=== PATIENT | female | born 1970 ===

== ENCOUNTER 2022-02-01 08:24 | Outpatient (REF) | payer OTHER, SELFPAY ==
[2022-02-01 08:43] LABS: MANUAL DIFF FLAG NO
[2022-02-01 08:55] LABS: Basophils Percent Auto 0.6 % (0-2); Eosinophils Absolute Auto 0.4 X10*3/uL (0.0-0.4); Eosinophils Percent Auto 7.6 % (0-4); Hematocrit 43.6 % (37.0-47.0); Imm Gran Abs Auto 0.01 X10*3/uL (0.00-0.03); Imm Gran Pct Auto 0.2 % (0.0-0.4); Lymphocytes Absolute Auto 1.4 X10*3/uL (1.2-4.9); Lymphocytes Percent Auto 27.8 % (20-40); Mean Corpuscular HGB Conc 34.4 g/dl (31.0-35.0); Mean Corpuscular Hemoglobin 31.1 pg (27.0-33.0); Mean Corpuscular Volume 90.5 fL (80.0-98.0); Mean Platelet Volume 9.9 fL (9.4-12.3); Monocytes Absolute Auto 0.3 X10*3/uL (0.1-1.2); Monocytes Percent Auto 6.6 % (2-11); Neutrophils Absolute Auto 2.9 x10*3/uL (2.0-8.3); Neutrophils Percent Auto 57.2 % (45-73); Platelet Count 264 X10*3/uL (160-400); Red Blood Count 4.82 X10*6/uL (4.20-5.50); Red Cell Distribution Width 11.8 % (11.0-16.0)
[2022-02-01 09:03] LABS: Estimated Average Glucose 94 mg/dL; Hemoglobin A1c % 4.9 %
[2022-02-01 09:16] LABS: Alanine Aminotransferase 39 U/L (0-31); Albumin Level 4.3 g/dL (3.5-5.0); Alkaline Phosphatase 100 U/L (39-117); Aspartate Amino Transferase 25 U/L (5-31); Bilirubin Total 0.7 mg/dL (0.0-1.0); Blood Urea Nitrogen 19 mg/dL (9-16); C Reactive Protein 0.14 mg/dL (< or = 0.50); Calcium 10.1 mg/dL (8.4-10.2); Estimated Glomerular Filt Rate > 60; Glucose Random 82 mg/dL (60-115); Rheumatoid Factor < 13.0 IU/mL (<15.0); Total Protein 6.8 g/dL (6.5-8.0)
[2022-02-01 09:26] LABS: Anion Gap 13 (12-20); Carbon Dioxide 26 mmol/L (22-29); Chloride 106 mmol/L (96-108); Potassium 3.9 mmol/L (3.3-5.1); Sodium 141 mmol/L (135-145)
[2022-02-01 09:36] LABS: Erythrocyte Sedimentation Rate 5 MM/HR (0-20)
[2022-02-01 11:39] LABS: Appearance Urine Clear; Color Urine Yellow; Glucose Urine UA Negative (Negative); Leukocyte Esterase Urine Small (1+) (Negative); Nitrite Urine Negative (Negative); PH 6.5 (5.0-9.0); UMIC TRIGGER UA YES; Urine Blood Negative (Negative); Urine Ketones Negative (Negative); Urine Protein Negative (Neg-Trace)
[2022-02-01 11:56] LABS: Bacteria Urine None Seen (None Seen); Calcium Oxalate Crystals Urine Present; Hyaline Casts Urine 0-2 /LPF (0-2); RBC Urine 0-2 /HPF (0-2); Squamous Epithelial Cell Urine 0-2 /HPF (0-2); WBC Urine 0-5 /HPF (0-5)
[2022-02-01 12:11] LABS: Creatinine Urine 144.95 mg/dL; Total Protein Urine Random < 7 mg/dL (<12)
[2022-02-03 14:22] LABS: Prot Elec - Albumin 4.2 g/dL (3.8-4.8); Prot Elec - Alpha1 0.2 g/dL (0.2-0.3); Prot Elec - Alpha2 0.6 g/dL (0.5-0.9); Prot Elec - Beta 1 0.4 g/dL (0.4-0.6); Prot Elec - Beta 2 0.3 g/dL (0.2-0.5); Prot Elec - Total Protein 6.7 g/dL (6.1-8.1)
[2022-02-04 01:58] LABS: Complement C3 139 mg/dL (83-193)
[2022-02-05 14:49] LABS: Cyclic Citrullinated Peptide <16 UNITS
[2022-02-05 18:54] LABS: Anti DNA DS Antibody 1 IU/mL; Antibody to SS-A Antigen <1.0 NEG AI (<1.0 NEG); Antibody to SS-B Antigen <1.0 NEG AI (<1.0 NEG); SM/Ribonucleoprotein Ab <1.0 NEG AI (<1.0 NEG); Smith Protein <1.0 NEG AI (<1.0 NEG)
[2022-02-07 13:52] LABS: IgA 189 mg/dL (47-310); IgG 1160 mg/dL (600-1640); IgM 55 mg/dL (50-300)
[2022-02-10 15:20] LABS: Cryoglobulin, Qual NONE DETECTED ((NDT))
== END 2022-02-01 08:25 | disposition home or self-care (01) ==
LOC: HO.10HDL 08:24
PROVIDERS: Visit Provider Student in an Organized Health Care Education/Training Program
DX: Z13.1 Encounter for screening for diabetes mellitus (principal); M35.01 Sjogren syndrome with keratoconjunctivitis; R76.8 Other specified abnormal immunological findings in serum; J45.909 Unspecified asthma, uncomplicated
CPT/HCPCS: 36415; 80053; 81001; 82550; 82595; 82784; 83036; 84156; 84165; 85025; 85652; 86140; 86160; 86200; 86225; 86235; 86334; 86431; 99202

== ENCOUNTER 2022-03-30 13:15 | Outpatient (REF) | payer OTHER, SELFPAY ==
[2022-03-30 13:57] LABS: MANUAL DIFF FLAG NO
[2022-03-30 14:21] LABS: Basophils Absolute Auto 0.1 X10*3/uL (0.0-0.2); Basophils Percent Auto 0.7 % (0-2); Eosinophils Absolute Auto 0.4 X10*3/uL (0.0-0.4); Hematocrit 44.9 % (37.0-47.0); Hemoglobin 15.4 g/dl (12.0-16.0); Imm Gran Abs Auto 0.02 X10*3/uL (0.00-0.03); Imm Gran Pct Auto 0.2 % (0.0-0.4); Lymphocytes Absolute Auto 1.3 X10*3/uL (1.2-4.9); Lymphocytes Percent Auto 13.8 % (20-40); Mean Corpuscular HGB Conc 34.3 g/dl (31.0-35.0); Mean Corpuscular Hemoglobin 30.7 pg (27.0-33.0); Mean Corpuscular Volume 89.6 fL (80.0-98.0); Mean Platelet Volume 9.7 fL (9.4-12.3); Monocytes Absolute Auto 0.4 X10*3/uL (0.1-1.2); Monocytes Percent Auto 4.1 % (2-11); Neutrophils Absolute Auto 7.1 x10*3/uL (2.0-8.3); Neutrophils Percent Auto 77.2 % (45-73); Platelet Count 262 X10*3/uL (160-400); Red Blood Count 5.01 X10*6/uL (4.20-5.50); Red Cell Distribution Width 11.8 % (11.0-16.0); White Blood Count 9.2 X10*3/uL (4.8-10.8)
== END 2022-03-30 13:16 | disposition home or self-care (01) ==
LOC: HO.LAB 13:15
PROVIDERS: PCP Student in an Organized Health Care Education/Training Program; Visit Provider Internal Medicine Pulmonary Disease
DX: J45.909 Unspecified asthma, uncomplicated (principal); Z91.09 Other allergy status, other than to drugs and biological substances
CPT/HCPCS: 36415; 82785; 85025; 86003; 99202

== ENCOUNTER 2022-04-10 08:29 | Outpatient (REF) | payer OTHER, SELFPAY ==
--- NOTE | 2022-04-10 12:01 | PFT_ITS ---
Forced vital capacity 90%, FEV1 91%. FEV1/FVC ratio is 81. LSO95-12 is 83% and MVV 91%. Post bronchodilator therapy, there is no significant change. Total lung capacity 91%. Residual volume 91%. Diffusion capacity 128%. CONCLUSION: Normal pulmonary function test. No evidence of obstructive or restrictive pulmonary disorder. MD CHRISTIAN Galeana/JERMAINE / [id number]
== END 2022-04-10 08:30 | disposition home or self-care (01) ==
LOC: HO.RESP 08:29
PROVIDERS: Visit Provider Internal Medicine Pulmonary Disease
DX: J45.909 Unspecified asthma, uncomplicated (principal)
CPT/HCPCS: 94060; 94727; 94729

== ENCOUNTER → 2022-05-11 13:00 | Outpatient (BNVA) | payer OTHER, SELFPAY | PROVIDERS: PCP Student in an Organized Health Care Education/Training Program; Visit Provider Internal Medicine Pulmonary Disease | DX: J45.909 Unspecified asthma, uncomplicated (principal); Z91.09 Other allergy status, other than to drugs and biological substances | CPT/HCPCS: 99212 ==

== ENCOUNTER → 2022-05-25 09:05 | Outpatient (BNVA) | payer OTHER, SELFPAY | PROVIDERS: PCP Student in an Organized Health Care Education/Training Program; Visit Provider Student in an Organized Health Care Education/Training Program | DX: R76.8 Other specified abnormal immunological findings in serum (principal) | CPT/HCPCS: 99212 ==

== ENCOUNTER → 2022-07-05 09:08 | Outpatient (BNVA) | payer OTHER, SELFPAY | PROVIDERS: PCP Student in an Organized Health Care Education/Training Program; Visit Provider Internal Medicine Pulmonary Disease | DX: J45.909 Unspecified asthma, uncomplicated (principal); Z91.09 Other allergy status, other than to drugs and biological substances; Z79.899 Other long term (current) drug therapy; Z87.891 Personal history of nicotine dependence | CPT/HCPCS: 99212 ==

== ENCOUNTER 2022-09-21 07:39 | Outpatient (AMB) | payer OTHER, SELFPAY ==
--- NOTE | 2022-09-21 07:43 | MHC.OFFVIS ---
Intake Vital Signs 09/21/22 07:44 Height 5 ft 4 in Weight 139 lb 15.896 oz BMI 24.0 Blood Pressure Location Rt brachial Position Sitting Pulse 76 Pulse Source Palpation Temp 97.7 F Temp Source Temporal Artery Scan Pulse Oximetry (%) 96 Oxygen Delivery Method Room Air Intake Visit Reasons: [place] Allergies No Known Allergies Allergy (Verified 07/05/22 09:16) Medication List - Last Reconciled 09/21/22 by Milli Witt MD acetaminophen (Tylenol Extra Strength) 1,000 mg PO Q6H PRN alendronate 70 mg PO QWEEK fluticasone furoate-vilanterol 200-25 mcg/dose (Breo Ellipta) 1 inh inhalation DAILY 30 days fluticasone propionate 50 mcg/actuation (Allergy Relief (fluticasone)) 1 spray intranasal DAILY hydrochlorothiazide 25 mg PO DAILY levothyroxine 100 mcg PO DAILY losartan 25 mg PO DAILY meclizine 12.5 mg PO TID PRN minoxidil 1.25 mg PO DAILY montelukast 10 mg PO DAILY salt irrigation solution no.1 ([place] Complete nasal spray) sprays intranasal DAILY spironolactone (Aldactone) 50 mg PO DAILY Ventolin HFA 90 mcg/actuation (albuterol sulfate) 1 puff PO Q4-6H PRN 30 days NS HPI HPI Comments History of Present Illness Details This is a 51-year-old female with a past medical history of suspected Sjogren's returns for follow-up. Patient was evaluated by ENT and lip biopsy was discussed but patient decided not to do it. She was evaluated recently by Ophthalmology and had bilateral punctal plugs with improvement in her dry mouth. Patient states that she gets episodes of skin pain, she also gets episodes of pain and swelling in her fingers and knuckles. She recently stopped gabapentin as she felt it was giving her headaches Initial history: This is a 51-year-old female with past medical history of thyroid disease s/p radioiodine ablation, childhood asthma presents for evaluation of Sjogren's. Patient was diagnosed with Sjogren's syndrome 4-5 years ago with a positive DEANA, dry eyes and dry mouth and diffuse pain. She was started on hydroxychloroquine and took it for about 3 years. She stated that hydroxychloroquine initially provided some relief but he was stopped by her PCP about a year ago. Patient states that her symptoms did not change after stopping the Plaquenil. She was also tried briefly 2019 on methotrexate for joint pain but it was ineffective. Patient was evaluated by Ophthalmology before but she denied ever getting any artificial tears. Patient stated that she was diagnosed with COVID about 4-5 weeks ago and she still has some shortness of breath. She states that she had asthma as a child and used to take syrup for it, denied ever needing inhalers. She was admitted for asthma as a child multiple times but denied ever getting intubated. She denies any fevers or weight loss. She continues to have diffuse pain [facility] Medical History Hypertension Hypothyroidism Inflammatory arthritis Sjogren syndrome with keratoconjunctivitis Surgical History H/O radioactive iodine thyroid ablation Hx of eye surgery Family History Father Hypertension Kidney stones Brother Chronic headaches Social History Household Members: Family Housing: Apartment Are you a primary toddler caregiver to a significant other at home: No Do you presently have visiting nurse or other home services: No 75 years or older and lives alone: No Alcohol intake: never Patient Tobacco Use Status: Never used Tobacco e-Cigarette/Vaping Use: Never Used service: No Current occupational status: employed 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 Review of Systems Const Reports fatigue ENT Reports dry mouth Musc Reports myalgias, Reports arthralgias and Reports stiffness Endo Reports fatigue Physical Exam Const General: cooperative, healthy appearing, comfortable and no acute distress Nutritional Appearance: average body habitus Orientation/consciousness: patient oriented x3 Limitations: no limitations HEENT Head: Yes normocephalic and Yes atraumatic Mouth: moist mucous membranes Resp Effort & Inspection: normal respiratory effort and able to speak in complete sentences Cardio Rate: regular rate Rhythm: regular rhythm Heart sounds: S1 normal heart sound present and S2 normal heart sound present GI Inspection: No distended Palpation (GI): Soft to palpation and nontender Neuro General: patient oriented x3 Extrem Other: Normal nailfold capillaroscopy Right 3rd MCP tenderness without swelling Results Reviewed Results Reviewed: Labs 2018 DEANA 1-640 speckled Labs 2017 DEANA 1:1280 homogeneous Assessment & Plan Assessment & Plan (1) DEANA positive: Code(s): R76.8 - Other specified abnormal immunological findings in serum Plan: This is a 51-year-old female previously diagnosed with Sjogren's presents for follow-up. She was diagnosed with Sjogren's based on positive DEANA, diffuse pain (? Inflammatory arthritis) and dry eyes and dry mouth. Patient also has a positive thyroperoxidase antibody. She has negative Sjogren's antibodies. She was on hydroxychloroquine for 3 years which was stopped with no worsening of joint pain. Methotrexate was briefly tried in 2019 which was ineffective. Patient was evaluated by ENT for lip biopsy but patient was afraid to do the procedure. I discussed with patient the importance of confirming the diagnosis of Sjogren's as it has implications with regards to screening for complications of Sjogren's such as lymphomas, ILD and pulmonary hypertension and others. Patient will think about the lip biopsy Patient stated that she was doing better when she was on hydroxychloroquine. Will restart hydroxychloroquine 300 mg daily. The majority of patients complaints however are likely due to fibromyalgia Follow-up in 4 months (2) Long-term use of hydroxychloroquine: Code(s): Z79.899 - Other prison (current) drug therapy Plan: Side effects of Plaquenil were discussed with patient is including but not limited to allergic reaction, retinal toxicity, cardiomyopathy, myopathy. Patient counseled that he will get regular eye exam. Patient verbalized understanding Plan I spent 29 minutes reviewing patient's chart, evaluating patient, placing orders, counseling patient and documenting in the chart Medications: New hydroxychloroquine 300 mg (1.5 x 200 mg) PO DAILY 135 tabs 1RF Coding Level of Care Code Est Pt Level 4 (77854) Diagnoses DEANA positive R76.8 Long-term use of hydroxychloroquine Z79.899
[2022-09-21 07:44] VITALS: PULSE 76; TEMP 36.5; O2SAT 96; BMI 24.0
== END 2022-09-21 08:05 | disposition home or self-care (01) ==
PROVIDERS: PCP Student in an Organized Health Care Education/Training Program; Visit Provider Student in an Organized Health Care Education/Training Program
DX: R76.8 Other specified abnormal immunological findings in serum (principal); Z79.899 Other long term (current) drug therapy
CPT/HCPCS: 99214

== ENCOUNTER → 2022-09-21 07:39 | Outpatient (BNVA) | payer OTHER, SELFPAY | PROVIDERS: Visit Provider Student in an Organized Health Care Education/Training Program | DX: R76.8 Other specified abnormal immunological findings in serum (principal); Z79.899 Other long term (current) drug therapy | CPT/HCPCS: 99212 ==

== ENCOUNTER 2022-11-14 08:36 | Outpatient (AMB) | payer OTHER, SELFPAY ==
[2022-11-14 08:49] VITALS: BP 122/79; PULSE 81; O2SAT 99; BMI 28.4
--- NOTE | 2022-11-14 08:49 | MHC.OFFVIS ---
Intake Vital Signs 11/14/22 08:49 Height 5 ft Weight 145 lb 8.081 oz BMI 28.4 BP 122/79 Blood Pressure Location Lt brachial Position Sitting Pulse 81 Pulse Source Doppler Pulse Oximetry (%) 99 Oxygen Delivery Method Room Air Intake Visit Reasons: asthma Allergies No Known Allergies Allergy (Verified 11/14/22 08:54) HPI asthma HPI Details 51-year-old lady, former 5 pack year smoker, quit over 15 years prior with underlying history of Sjogren syndrome, followed for moderate persistent asthma and environmental allergies. At the last office visit Singulair was added to her regimen of Breo and albuterol MDI with improvement in symptom control. Patient denies any recent exacerbations. [facility] Medical History Hypertension Hypothyroidism Inflammatory arthritis Sjogren syndrome with keratoconjunctivitis Surgical History H/O radioactive iodine thyroid ablation Hx of eye surgery Family History Father Hypertension Kidney stones Brother Chronic headaches Social History Household Members: Family Housing: Apartment Are you a primary healthcare prof to a significant other at home: No Do you presently have visiting nurse or other home services: No 75 years or older and lives alone: No Alcohol intake: never Patient Tobacco Use Status: Never used Tobacco e-Cigarette/Vaping Use: Never Used service: No Current occupational status: employed 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 Review of Systems Const Denies daytime sleepiness, Denies excessive sweating, Denies fatigue, Denies fever(s), Denies lethargy, Denies malaise, Denies night sweats, Denies snoring and Denies weight loss Eyes Denies blurry vision and Denies itchy eyes ENT Denies nasal congestion, Denies post nasal drip, Denies sinus pain, Denies sinus pressure and Denies other ( Thrush) Card Denies chest pain, Denies pedal edema, Denies dyspnea, Denies orthopnea and Denies paroxysmal nocturnal dyspnea Resp Denies cough, Denies hemoptysis, Denies excessive phlegm production, Denies dyspnea, Denies snoring and Denies wheezing GI Denies abdominal pain and Denies heartburn Musc Denies myalgias, Denies arthralgias and Denies joint swelling Skin/Breast Denies rash Neuro Denies memory loss and Denies seizure-like activity Psych Denies abnormal sleep pattern, Denies anxiety and Denies memory loss Endo Denies excessive sweating, Denies fatigue and Denies heat intolerance Cory/Lymph Denies easy bruising Aller/Immun Denies itchy eyes, Denies seasonal rhinorrhea and Denies wheezing Physical Exam Vital Signs: Last Vital Signs Pulse 81 11/14/22 08:49 BP 122/79 11/14/22 08:49 Pulse Ox 99 11/14/22 08:49 Oxygen Delivery Method Room Air 11/14/22 08:49 BMI result Body Mass Index 28.4 Const General: no acute distress and alert Nutritional Appearance: not obese Orientation/consciousness: Other orientation findings ( oriented) HEENT Head: Yes atraumatic Eyes General: appearance normal, both eyes and all related structures Sclerae: sclerae normal EOM: EOMs intact bilaterally Neck Neck: Yes supple Lymphatic: no lymphadenopathy noted Resp Effort & Inspection: normal respiratory effort and no use of accessory muscles Auscultation: clear to auscultation bilaterally Cardio Rate: regular rate Rhythm: regular rhythm Heart sounds: no gallops, no murmurs and no rubs Skin General skin exam: other ( warm) Extrem General: No clubbing, No cyanosis and No edema Assessment & Plan Assessment & Plan (1) Asthma: Code(s): J45.909 - Unspecified asthma, uncomplicated Qualifiers: Asthma severity: mild Asthma persistence: unspecified Plan: Well controlled on Breo and albuterol MDI. Continue current regimen. (2) Environmental allergies: Code(s): Z91.09 - Other allergy status, other than to drugs and biological substances Plan: Well controlled on Singulair and Flonase. Continue current regimen. Coding Level of Care Code Est Pt Level 4 (58625) Diagnoses Asthma J45.909 Asthma severity: mild Asthma persistence: unspecified Environmental allergies Z91.09
== END 2022-11-14 09:18 | disposition home or self-care (01) ==
PROVIDERS: PCP Student in an Organized Health Care Education/Training Program; Visit Provider Internal Medicine Pulmonary Disease
DX: J45.909 Unspecified asthma, uncomplicated (principal); Z91.09 Other allergy status, other than to drugs and biological substances
CPT/HCPCS: 99214

== ENCOUNTER → 2022-11-14 08:36 | Outpatient (BNVA) | payer OTHER, SELFPAY | PROVIDERS: PCP Student in an Organized Health Care Education/Training Program; Visit Provider Internal Medicine Pulmonary Disease | DX: J45.909 Unspecified asthma, uncomplicated (principal); Z91.09 Other allergy status, other than to drugs and biological substances | CPT/HCPCS: 99212 ==

== ENCOUNTER 2023-02-05 13:33 | Outpatient (AMB) | payer OTHER, SELFPAY ==
[2023-02-05 13:34] VITALS: BP 164/98; PULSE 114; O2SAT 97; BMI 29.3
--- NOTE | 2023-02-05 13:34 | A.OFFVIS_ITS ---
Intake Vital Signs 02/05/23 13:34 Height 5 ft Weight 149 lb 14.629 oz BMI 29.3 BP 164/98 H Blood Pressure Location Lt brachial Position Sitting Pulse 114 H Pulse Source Doppler Pulse Oximetry (%) 97 Intake Visit Reasons: cough and wheeze Allergies No Known Allergies Allergy (Verified 02/05/23 13:38) HPI cough and wheeze HPI Details 52-year-old lady, former 5 pack year smo ker, quit over 15 years prior with underlying history of Sjogren syndrome, followed for moderate persistent asthma and environmental allergies. Patient continues on Breo, Singulair, and albuterol MDI with reasonable baseline control of his symptoms. Today she complains of an acute exacerbation with viral bronchitic symptoms. [facility] Medical History Hypertension Hypothyroidism Inflammatory arthritis Sjogren syndrome with keratoconjunctivitis Surgical History H/O radioactive iodine thyroid ablation Hx of eye surgery Family History Father Hypertension Kidney stones Brother Chronic headaches Social History Household Members: Family Housing: Apartment Are you a primary pet care assistant to a significant other at home: No Do you presently have visiting nurse or other home services: No 75 years or older and lives alone: No Alcohol intake: never Patient Tobacco Use Status: Never used Tobacco e-Cigarette/Vaping Use: Never Used service: No Current occupational status: employed 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 Review of Systems Const Denies daytime sleepiness, Denies excessive sweating, Denies fatigue, Denies fever(s), Denies lethargy, Denies malaise, Denies night sweats, Denies snoring and Denies weight loss Eyes Denies blurry vision and Denies itchy eyes ENT Denies nasal congestion, Denies post nasal drip, Denies sinus pain, Denies sinus pressure and Denies other ( Thrush) Card Denies chest pain, Denies pedal edema, Denies dyspnea, Reports dyspnea on exertion, Denies orthopnea and Denies paroxysmal nocturnal dyspnea Resp Reports cough, Denies hemoptysis, Denies excessive phlegm production, Denies dyspnea, Reports dyspnea on exertion, Denies snoring and Reports wheezing GI Denies abdominal pain and Denies heartburn Musc Denies myalgias, Denies arthralgias and Denies joint swelling Skin/Breast Denies rash Neuro Denies memory loss and Denies seizure-like activity Psych Denies abnormal sleep pattern, Denies anxiety and Denies memory loss Endo Denies excessive sweating, Denies fatigue and Denies heat intolerance Cory/Lymph Denies easy bruising Aller/Immun Denies itchy eyes, Denies seasonal rhinorrhea and Reports wheezing Physical Exam Vital Signs: Last Vital Signs Pulse 114 H 02/05/23 13:34 BP 164/98 H 02/05/23 13:34 Pulse Ox 97 02/05/23 13:34 BMI result Body Mass Index 29.3 Const General: no acute distress and alert Nutritional Appearance: not obese Orientation/consciousness: Other orientation findings ( oriented) HEENT Head: Yes atraumatic Eyes General: appearance normal, both eyes and all related structures Sclerae: sclerae normal EOM: EOMs intact bilaterally Neck Neck: Yes supple Lymphatic: no lymphadenopathy noted Resp Effort & Inspection: normal respiratory effort and no use of accessory muscles Auscultation: clear to auscultation bilaterally Cardio Rate: regular rate Rhythm: regular rhythm Heart sounds: no gallops, no murmurs and no rubs Skin General skin exam: other ( warm) Extrem General: No clubbing, No cyanosis and No edema Assessment & Plan Assessment & Plan (1) Asthma: Code(s): J45.909 - Unspecified asthma, uncomplicated Qualifiers: Asthma severity: mild Asthma persistence: unspecified Plan: Baseline controlled on Breo, albuterol MDI, and Singulair. Continue current regimen. (2) Acute bronchitis: Code(s): J20.9 - Acute bronchitis, unspecified Plan: Now with acute bronchitic symptoms. Will obtain RSV/COVID/flu swab. Will treat with a course of prednisone and azithromycin. Orders: Orders SARS-CoV2/FLU/RSV Today R09.89 - Other specified symptoms and signs involving the circulatory and respiratory systems Medications: New prednisone 40 mg (2 x 20 mg) PO DAILY 10 tabs 0RF azithromycin For 250 mg dose pack: take 500 mg today (day 1), then 250 mg for 4 days (days 2-5) PO 6 tabs 0RF Coding Level of Care Code Est Pt Level 4 (49590) Diagnoses Asthma J45.909 Asthma severity: mild Asthma persistence: unspecified Acute bronchitis J20.9
== END 2023-02-05 13:55 | disposition home or self-care (01) ==
PROVIDERS: PCP Student in an Organized Health Care Education/Training Program; Visit Provider Internal Medicine Pulmonary Disease
DX: J45.909 Unspecified asthma, uncomplicated (principal); J20.9 Acute bronchitis, unspecified
CPT/HCPCS: 99214

== ENCOUNTER 2023-02-05 13:33 | Outpatient (REF) | payer OTHER, SELFPAY ==
[2023-02-05 15:56] LABS: Influenza A PCR POSITIVE (Negative); Influenza B PCR NEGATIVE (Negative); Resp Syncy Virus RNA Qual PCR NEGATIVE (Negative); SARS COV2 PCR INHOUSE NEGATIVE (Negative)
== END 2023-02-05 13:34 | disposition home or self-care (01) ==
LOC: HO.LNP 13:33
PROVIDERS: PCP Student in an Organized Health Care Education/Training Program; Visit Provider Internal Medicine Pulmonary Disease
DX: Z11.52 Encounter for screening for COVID-19 (principal); R09.89 Other specified symptoms and signs involving the circulatory and respiratory systems; J45.909 Unspecified asthma, uncomplicated; J20.9 Acute bronchitis, unspecified
CPT/HCPCS: 0241U; 99212

== ENCOUNTER → 2023-04-08 07:57 | Outpatient (REF) | payer OTHER, SELFPAY | LOC: HO.SL 07:57 | PROVIDERS: PCP Student in an Organized Health Care Education/Training Program; Visit Provider Internal Medicine Pulmonary Disease | DX: G47.33 Obstructive sleep apnea (adult) (pediatric) (principal) | CPT/HCPCS: 95806 ==

== ENCOUNTER → 2023-04-08 08:36 | Outpatient (BNV) | payer OTHER, SELFPAY | PROVIDERS: PCP Student in an Organized Health Care Education/Training Program; Visit Provider Internal Medicine | DX: G47.33 Obstructive sleep apnea (adult) (pediatric) (principal) | CPT/HCPCS: 95806 ==

== ENCOUNTER 2023-05-13 08:40 | Outpatient (AMB) | payer OTHER, SELFPAY ==
--- NOTE | 2023-05-13 08:42 | MHC.OFFVIS ---
Intake Vital Signs 05/13/23 08:45 Height 5 ft Weight 145 lb 8.081 oz BMI 28.4 BP 124/80 Blood Pressure Location Lt brachial Position Sitting Pulse 77 Pulse Source Pulse Oximeter Temp 97.0 F Temp Source Skin Pulse Oximetry (%) 97 Oxygen Delivery Method Room Air Intake Visit Reasons: [facility] Intake Note: Patient last seen 09/21/22 presents today for follow up. 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 Accompanied by: Self / Same As Patient Allergies No Known Allergies Allergy (Verified 05/13/23 08:45) Medication List - Last Reconciled 05/13/23 by Milli Witt MD acetaminophen (Tylenol Extra Strength) 1,000 mg PO Q6H PRN alendronate 70 mg PO QWEEK fluticasone furoate-vilanterol 200-25 mcg/dose (Breo Ellipta) 1 inh inhalation DAILY 30 days fluticasone propionate 50 mcg/actuation (Allergy Relief (fluticasone)) 1 spray intranasal DAILY hydrochlorothiazide 25 mg PO DAILY levothyroxine 100 mcg PO DAILY losartan 25 mg PO DAILY meclizine 12.5 mg PO TID PRN minoxidil 1.25 mg PO DAILY montelukast 10 mg PO DAILY spironolactone (Aldactone) 50 mg PO DAILY Ventolin HFA 90 mcg/actuation (albuterol sulfate) 1 puff PO Q4-6H PRN 30 days NS HPI HPI Comments History of Present Illness Details This is a 52-year-old female with a past medical history of suspected Sjogren's returns for follow-up. She is on hydroxychloroquine 200 mg Twice daily. She states that she did not feel better when she was taking hydroxychloroquine. Continues to have diffuse pain. Especially of her shoulders, recently she went to urgent care due to generalized body numbness. She was advised to follow-up with her PCP. She recently completed a sleep study. She has not heard back about the results yet. Initial history: This is a 51-year-old female with past medical history of thyroid disease s/p radioiodine ablation, childhood asthma presents for evaluation of Sjogren's. Patient was diagnosed with Sjogren's syndrome 4-5 years ago with a positive DEANA, dry eyes and dry mouth and diffuse pain. She was started on hydroxychloroquine and took it for about 3 years. She stated that hydroxychloroquine initially provided some relief but he was stopped by her PCP about a year ago. Patient states that her symptoms did not change after stopping the Plaquenil. She was also tried briefly 2019 on methotrexate for joint pain but it was ineffective. Patient was evaluated by Ophthalmology before but she denied ever getting any artificial tears. Patient stated that she was diagnosed with COVID about 4-5 weeks ago and she still has some shortness of breath. She states that she had asthma as a child and used to take syrup for it, denied ever needing inhalers. She was admitted for asthma as a child multiple times but denied ever getting intubated. She denies any fevers or weight loss. She continues to have diffuse pain [facility] Medical History Hypothyroidism Sjogren syndrome with keratoconjunctivitis Inflammatory arthritis Hypertension Surgical History Hx of eye surgery H/O radioactive iodine thyroid ablation Family History Father Hypertension Kidney stones Brother Chronic headaches Social History Household Members: Family Housing: Apartment Are you a primary foster care worker to a significant other at home: No Do you presently have visiting nurse or other home services: No 75 years or older and lives alone: No Alcohol intake: never Patient Tobacco Use Status: Never used Tobacco e-Cigarette/Vaping Use: Never Used service: No Current occupational status: employed 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 Review of Systems Const Reports fatigue ENT Reports dry mouth Musc Reports myalgias, Reports arthralgias, Reports numbness and Reports stiffness Neuro Reports numbness Endo Reports fatigue Physical Exam Vital Signs: Last Vital Signs Temp 97.0 F 05/13/23 08:45 Pulse 77 05/13/23 08:45 BP 124/80 05/13/23 08:45 Pulse Ox 97 05/13/23 08:45 Oxygen Delivery Method Room Air 05/13/23 08:45 BMI result Body Mass Index 28.4 Const General: cooperative, healthy appearing, comfortable and no acute distress Nutritional Appearance: average body habitus Orientation/consciousness: patient oriented x3 Limitations: no limitations HEENT Other: Slightly dry oral mucosa Head: Yes normocephalic and Yes atraumatic Resp Effort & Inspection: normal respiratory effort and able to speak in complete sentences Cardio Rate: regular rate Rhythm: regular rhythm Neuro General: patient oriented x3 Extrem Other: No active synovitis Few fibromyalgia tender points Results Reviewed Results Reviewed: Labs 2018 DEANA 1-640 speckled Labs 2017 DEANA 1:1280 homogeneous Assessment & Plan Assessment & Plan (1) DEANA positive: Code(s): R76.8 - Other specified abnormal immunological findings in serum Plan: This is a 51-year-old female previously diagnosed with Sjogren's presents for follow-up. She was diagnosed with Sjogren's based on positive DEANA, diffuse pain (? Inflammatory arthritis) and dry eyes and dry mouth. Patient also has a positive thyroperoxidase antibody. She has negative Sjogren's antibodies. She was on hydroxychloroquine for 3 years which was stopped with no worsening of joint pain. Methotrexate was briefly tried in 2019 which was ineffective. Patient was evaluated by ENT for lip biopsy but patient was afraid to do the procedure. I discussed with patient the importance of confirming the diagnosis of Sjogren's as it has implications with regards to screening for complications of Sjogren's such as lymphomas, ILD and pulmonary hypertension and others. Patient restarted hydroxychloroquine last visit. She has not felt better overall. I do not see any signs suggestive of an active autoimmune rheumatic disease on exam. Will DC hydroxychloroquine. Re-evaluate in 1 year (2) Fibromyalgia, primary: Code(s): M79.7 - Fibromyalgia Plan: Discussed management of fibromyalgia with patient. Is a noninflammatory, non-autoimmune central afferent processing disorder leading to a diffuse pain syndrome. I suggested that patient try to address her underlying psychiatric issues, anxiety/depression. I suggested evaluation by a therapist a Try to follow sleep hygiene practices. Patient would benefit from increased physical activity, either through formal physical therapy or by joining a gym. Advised patient that she should start activity slowly and increase as tolerated. Consider low-impact exercises such as walking, swimming, aqua therapy stretching, yoga.\ Follow-up with PCP Plan I spent 29 minutes reviewing patient's chart, evaluating patient, counseling patient and documenting in the chart Coding Level of Care Code Est Pt Level 4 (45031) Diagnoses DEANA positive R76.8 Fibromyalgia, primary M79.7
[2023-05-13 08:45] VITALS: BP 124/80; PULSE 77; TEMP 36.1; O2SAT 97; BMI 28.4
== END 2023-05-13 09:08 | disposition home or self-care (01) ==
PROVIDERS: PCP Student in an Organized Health Care Education/Training Program; Visit Provider Student in an Organized Health Care Education/Training Program
DX: R76.8 Other specified abnormal immunological findings in serum (principal); M79.7 Fibromyalgia
CPT/HCPCS: 99214

== ENCOUNTER → 2023-05-13 08:40 | Outpatient (BNVA) | payer OTHER, SELFPAY | PROVIDERS: PCP Student in an Organized Health Care Education/Training Program; Visit Provider Student in an Organized Health Care Education/Training Program | DX: R76.8 Other specified abnormal immunological findings in serum (principal); M79.7 Fibromyalgia | CPT/HCPCS: 99212 ==

== ENCOUNTER 2023-11-29 08:31 | Outpatient (AMB) | payer OTHER, SELFPAY ==
[2023-11-29 08:49] VITALS: BP 122/78; PULSE 101; O2SAT 98; BMI 29.1
--- NOTE | 2023-11-29 08:49 | A.OFFVIS_ITS ---
Vital Signs 11/29/23 08:49 Height 5 ft Weight 149 lb BMI 29.1 BP 122/78 Blood Pressure Location Rt brachial Position Sitting Pulse 101 H Pulse Source Doppler Pulse Oximetry (%) 98 Oxygen Delivery Method Room Air Intake Visit Reasons: santos Allergies No Known Allergies Allergy (Verified 11/29/23 08:52) HPI HPI santos: Details: 52-year-old lady, former 5 pack year smoker, quit over 15 years prior with underlying history of Sjogren syndrome, followed for moderate persistent asthma, SANTOS, and environmental allergies. Patient continues on Breo, Singulair, and albuterol MDI with reasonable baseline control of her symptoms. she denies recent exacerbations. She has been using her CPAP with reasonable control of her underlying sleep apnea symptoms, however she has been having difficulties in obtaining nasal mask from her DME supplier. COUNTS INCLUDE 234 BEDS AT THE [facility] Medical History Hypothyroidism Sjogren syndrome with keratoconjunctivitis Inflammatory arthritis Hypertension Surgical History Hx of eye surgery H/O radioactive iodine thyroid ablation Family History Father Hypertension Kidney stones Brother Chronic headaches Social History Household Members: Family Housing: Apartment Are you a primary caregivers non medical to a significant other at home: No Do you presently have visiting nurse or other home services: No 75 years or older and lives alone: No Alcohol intake: never Patient Tobacco Use Status: Never used Tobacco e-Cigarette/Vaping Use: Never Used service: No Current occupational status: employed 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 Review of Systems Const Denies daytime sleepiness, Denies excessive sweating, Denies fatigue, Denies fever(s), Denies lethargy, Denies malaise, Denies night sweats, Denies snoring and Denies weight loss Eyes Denies blurry vision and Denies itchy eyes ENT Denies nasal congestion, Denies post nasal drip, Denies sinus pain, Denies sinus pressure and Denies other ( Thrush) Card Denies chest pain, Denies pedal edema, Denies dyspnea, Denies orthopnea and Denies paroxysmal nocturnal dyspnea Resp Denies cough, Denies hemoptysis, Denies excessive phlegm production, Denies dyspnea, Denies snoring and Denies wheezing GI Denies abdominal pain and Denies heartburn Musc Denies myalgias, Denies arthralgias and Denies joint swelling Skin/Breast Denies rash Neuro Denies memory loss and Denies seizure-like activity Psych Denies abnormal sleep pattern, Denies anxiety and Denies memory loss Endo Denies excessive sweating, Denies fatigue and Denies heat intolerance Cory/Lymph Denies easy bruising Aller/Immun Denies itchy eyes, Denies seasonal rhinorrhea and Denies wheezing Physical Exam Vital Signs: Last Vital Signs Pulse 101 H 11/29/23 08:49 BP 122/78 11/29/23 08:49 Pulse Ox 98 11/29/23 08:49 Oxygen Delivery Method Room Air 11/29/23 08:49 BMI result Body Mass Index 29.1 Const General: no acute distress and alert Nutritional Appearance: not obese Orientation/consciousness: Other orientation findings ( oriented) HEENT Head: Yes atraumatic Eyes General: appearance normal, both eyes and all related structures Sclerae: sclerae normal EOM: EOMs intact bilaterally Neck Neck: Yes supple Lymphatic: no lymphadenopathy noted Resp Effort & Inspection: normal respiratory effort and no use of accessory muscles Auscultation: clear to auscultation bilaterally Cardio Rate: regular rate Rhythm: regular rhythm Heart sounds: no gallops, no murmurs and no rubs Skin General skin exam: other ( warm) Extrem General: No clubbing, No cyanosis and No edema Assessment & Plan Assessment & Plan (1) Asthma: Code(s): J45.909 - Unspecified asthma, uncomplicated Category: Medical Qualifiers: Asthma severity: mild Asthma persistence: unspecified Plan: Well controlled on current regimen of Breo and albuterol MDI. Continue current regimen. (2) Environmental allergies: Code(s): Z91.09 - Other allergy status, other than to drugs and biological substances Category: Medical Plan: Well controlled on Singulair and nasal Flonase. Continue current regimen. (3) SANTOS (obstructive sleep apnea): Code(s): G47.33 - Obstructive sleep apnea (adult) (pediatric) Category: Medical Plan: well controlled on current CPAP therapy. Patient has been having difficulties and obtain nasal mask from her DME supplier, supplies order placed. Coding Level of Care Code Est Pt Level 4 (56140) Diagnoses Asthma J45.909 Asthma severity: mild Asthma persistence: unspecified Environmental allergies Z91.09 SANTOS (obstructive sleep apnea) G47.33
== END 2023-11-29 09:10 | disposition home or self-care (01) ==
PROVIDERS: PCP Student in an Organized Health Care Education/Training Program; Visit Provider Internal Medicine Pulmonary Disease
DX: J45.909 Unspecified asthma, uncomplicated (principal); Z91.09 Other allergy status, other than to drugs and biological substances; G47.33 Obstructive sleep apnea (adult) (pediatric)
CPT/HCPCS: 99214

== ENCOUNTER → 2023-11-29 08:31 | Outpatient (BNVA) | payer OTHER, SELFPAY | PROVIDERS: PCP Student in an Organized Health Care Education/Training Program; Visit Provider Internal Medicine Pulmonary Disease | DX: G47.33 Obstructive sleep apnea (adult) (pediatric) (principal); J45.909 Unspecified asthma, uncomplicated; Z91.09 Other allergy status, other than to drugs and biological substances | CPT/HCPCS: 99212 ==

== ENCOUNTER 2024-08-28 15:05 | Outpatient (AMB) | payer OTHER, SELFPAY ==
--- OUTSIDE RECORDS SUMMARY | 2024-08-28 15:13 | XMS_ITS | Clinical Summary ---
Author Organization [facility] Address [address] [place] [address] Care Team Providers Care Automotive Brake Adjuster Name Role Phone Ruchi Johnson MD Primary Care Provider [phone] Allergies No known active allergies Medications Medication Sig Dispensed Refills Start Date End Date Status Acetaminophen Extra Strength 500 MG TABS 0 06/15/2023 Acti ve albuterol (Ventolin HFA) 108 (90 Base) MCG/ACT inhaler 0 02/01/2022 Active Calcium Carb-Cholecalciferol (Oyster Shell Calcium/D) 500-10 MG-MCG TABS Take 1 tablet by mouth daily. 0 06/19/2022 Active Fluticasone Furoate-Vilanterol (Breo Ellipta) 200-25 MCG/ACT AEPB 0 05/11/2022 Active fluticasone (FLONASE) 50 MCG/ACT nasal spray INSTILL 1 spray in each nostril 1 OR 2 times daily 0 07/01/2023 Active hydroCHLOROthiazide (HYDRODIURIL) tablet 25 mg Take 1 tablet (25 mg total) by mouth daily. 0 09/18/2023 Active ibuprofen 800 MG tablet Take 1 tablet (800 mg total) by mouth every 8 (eight) hours as needed. 0 06/19/2023 Active levothyroxine (SYNTHROID) tablet 112 mcg Take 1 tablet (112 mcg total) by mouth. 0 09/18/2023 Active loratadine (CLARITIN) 10 MG tablet Take 1 tablet (10 mg total) by mouth daily. 0 06/19/2023 Active losartan (COZAAR) tablet 25 mg Take 1 tablet (25 mg total) by mouth daily. 0 09/18/2023 Active minoxidil (LONITEN) 2.5 MG tablet Take 0.5 tablets (1.25 mg total) by mouth daily. 0 02/05/2023 Active montelukast (SINGULAIR) 10 MG tablet 0 08/28/2022 Active spironolactone (ALDACTONE) tablet 50 mg Take 1 tablet (50 mg total) by mouth. 0 06/19/2023 Active amitriptyline (ELAVIL) 75 MG tablet Take 1 tablet (75 mg total) by mouth every night at bedtime. 30 tablet 3 11/18/2023 Active ergocalciferol (VITAMIN D2) capsule 58231 units Take 1 capsule (50,000 Units total) by mouth once a week. 4 capsule 12 11/18/2023 Active SUMAtriptan (IMITREX) 50 MG tablet Take 1 tablet (50 mg total) by mouth every 2 (two) hours as needed. 10 tablet 3 11/18/2023 Active Family History Medical History Relation Name Comments Multiple sclerosis Neg Hx Social History Tobacco Use Types Packs/Day Years Used Date Smoking Tobacco: Never Assessed Sex and Gender Information Value Date Recorded Sex Assigned at Female 08/27/2023 10:18 AM EDT Gender Identity Not on file Sexual Orientation Not on file Job Start Date Occupation Industry Not on file Not on file Not on file Last Filed Vital Signs Vital Sign Reading Time Taken Comments Blood Pressure 154/91 11/18/2023 9:07 AM EDT Pulse 85 11/18/2023 9:07 AM EDT Temperature 36 C (96.8 F) 11/18/2023 9:07 AM EDT Respiratory Rate - - Oxygen Saturation 98% 11/18/2023 9:07 AM EDT Inhaled Oxygen Concentration - - Weight 67.6 kg (149 lb) 11/18/2023 9:07 AM EDT Height 152.4 cm (5') 11/18/2023 9:07 AM EDT Body Mass Index 29.1 11/18/2023 9:07 AM EDT Plan of Treatment Health Maintenance Due Date Last Done Comments Hepatitis C Screening 1969 COVID-19 Vaccine (#1) 05/27/1970 Depression Screening 1981 Preventative Health Evaluation 11/28/1987 Cervical Cancer Screening (Pap Smear) 1990 Colon Cancer Screening (Colonoscopy) 2014 Breast Cancer Screening (Mammogram) 11/28/2019 Hepatitis B Vaccines (2 of 3 - 19+ 3-dose series) 06/05/2021 05/08/2021 DTap / Tdap / Td (2 - Td or Tdap) 11/02/2024 11/02/2014 Influenza Vaccine (Season Ended) 2024 Shingrix-Zoster Vaccine Completed 03/16/19 23, 11/07/2021 Pneumococcal Vaccine Aged Out No long er eligible based on patient's age to complete this topic RSV Ped < 20 months Aged Out No longe r eligible based on patient's age to complete this topic Care Teams Automotive Brake Adjuster Relationship Specialty Start Date End Date Ruchi Johnson MD [address] [place] [id number] PCP - General Internal Medicine 09/24/23
[2024-08-28 15:32] VITALS: BP 106/60; PULSE 69; O2SAT 98; BMI 28.3
--- NOTE | 2024-08-28 15:32 | A.OFFVIS_ITS ---
Vital Signs 08/28/24 15:32 Height 5 ft Weight 145 lb 1.027 oz BMI 28.3 BP 106/60 Blood Pressure Location Lt brachial Position Sitting Pulse 69 Pulse Source Pulse Oximeter Pulse Oximetry (%) 98 Oxygen Delivery Method Room Air Intake Visit Reasons: UCTD/FMS Intake Note: Patient presents today for UCTD/FMS follow up. Allergies No Known Allergies Allergy (Verified 08/28/24 15:34) Medication List - Last Reconciled 08/28/24 by Priya Li MD acetaminophen (Tylenol Extra Strength) 1,000 mg PO Q6H PRN alendronate 70 mg PO QWEEK amitriptyline 50 mg PO BEDTIME fluticasone furoate-vilanterol 200-25 mcg/dose (Breo Ellipta) 1 ea inhalation DAILY fluticasone propionate 50 mcg/actuation (Allergy Relief (fluticasone)) 1 spray intranasal DAILY hydrochlorothiazide 25 mg PO DAILY levothyroxine 100 mcg PO DAILY losartan 25 mg PO DAILY meclizine 12.5 mg PO TID PRN minoxidil 1.25 mg PO DAILY montelukast 10 mg PO DAILY spironolactone (Aldactone) 50 mg PO DAILY sumatriptan succinate take 1 tab at onset of headache; if no relief may repeat 1 tab after at least 2 hrs; max = 4 tabs/24 hr PO Ventolin HFA 90 mcg/actuation (albuterol sulfate) 1 puff PO Q4-6H PRN NS HPI Comments Details: Patient is a 53 y.o. female with HTN, Grave's disease s/p RI abalation and subsequent hypothyroidism, DEL, asthma, ?Sjogrens syndrome and fibromyalgia here today for follow up Interval History: Patient last seen 05/13/[address] Witt Visit summary - HCQ did not help her pain - Continued to complain of whole body diffuse pain - HCQ d/c'd - Pain thought to be due to fibromyalgia Today, - continues to complain of diffuse pain - uses tylenol, ibuprofen and patches Rheumatologic History: previously diagnosed with Sjogren's based on positive DEANA, diffuse pain (? Inflammatory arthritis) and dry eyes and dry mouth. Patient also has a positive thyroperoxidase antibody. She has negative Sjogren's antibodies. She was on hydroxychloroquine for 3 years which was stopped with no worsening of joint pain. Methotrexate was briefly tried in 2019 which was ineffective. Ultimately diagnosed with fibromyalgia - tried gabapentin Initial history: This is a 51-year-old female with past medical history of thyroid disease s/p radioiodine ablation, childhood asthma presents for evaluation of Sjogren's. Patient was diagnosed with Sjogren's syndrome 4-5 years ago with a positive DEANA, dry eyes and dry mouth and diffuse pain. She was started on hydroxychloroquine and took it for about 3 years. She stated that hydroxychloroquine initially provided some relief but he was stopped by her PCP about a year ago. Patient states that her symptoms did not change after stopping the Plaquenil. She was also tried briefly 2019 on methotrexate for joint pain but it was ineffective. Patient was evaluated by Ophthalmology before but she denied ever getting any artificial tears. Patient stated that she was diagnosed with COVID about 4-5 weeks ago and she still has some shortness of breath. She states that she had asthma as a child and used to take syrup for it, denied ever needing inhalers. She was admitted for asthma as a child multiple times but denied ever getting intubated. She denies any fevers or weight loss. She continues to have diffuse pain Current Rheumatology Medication(s): [facility] Medical History Hypothyroidism Sjogren syndrome with keratoconjunctivitis Inflammatory arthritis Hypertension Surgical History Hx of eye surgery H/O radioactive iodine thyroid ablation Family History Father Hypertension Kidney stones Brother Chronic headaches Social History Household Members: Family Housing: Apartment Are you a primary intensive care ambulance paramedic to a significant other at home: No Do you presently have visiting nurse or other home services: No 75 years or older and lives alone: No Alcohol intake: never Patient Tobacco Use Status: Never used Tobacco e-Cigarette/Vaping Use: Never Used service: No Current occupational status: employed 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 Review of Systems Const Details: Review of Systems Constitutional: Denies fever, chills, weight loss ENT: Denies vision changes, eye pain or eye redness, dental caries, dry mouth GI: Denies nausea, vomiting, diarrhea, abdominal pain, change in BM Pulm: Denies SOB, CALIXTO, hemoptysis, wheezing Cards: Denies chest pain, palpitations Skin: Denies Raynaud's, rash, nail changes, photosensitivity, SEISMIC ENGINEER: Denies headaches, weakness, paresthesias, recurrent falls MSK: as per HPI All other systems reviewed and are unremarkable except noted above Physical Exam Vital Signs: Last Vital Signs Pulse 69 08/28/24 15:32 BP 106/60 08/28/24 15:32 Pulse Ox 98 08/28/24 15:32 Oxygen Delivery Method Room Air 08/28/24 15:32 BMI result Body Mass Index 28.3 Vital signs reviewed Physical Examination CONSTITUITIONAL Patient alert and cooperative. Well appearing and in no apparent painful distress HEENT Conjunctiva and sclera clear. No lymphadenopathy. CHEST/RESPIRATORY SYSTEM Normal respiratory effort and able to speak in complete sentences. Clear to auscultation bilaterally. No crackles, rales, rhonchi, wheezes heard. CARDIAC SYSTEM Regular rate and rhythm. S1 and S2 heard no murmurs. Radial pulses intact bilaterally MSK Hands * Right Hand: Able to make a fist. TTP of the entire hand without specific joint abnormalities. * Left Hand: Able to make a fist. TTP of the entire hand without specific joint abnormalities Wrists * Right Wrist: Full ROM. 70 degrees of wrist flexion, 80 degrees of wrist extension. No swelling or TTP * Left Wrist: Full ROM. 70 degrees of wrist flexion, 80 degrees of wrist extension. No swelling or TTP Elbows * Right Elbow: Full ROM. No swelling or TTP. TTP of the lateral epicondyles * Left Elbow: Full ROM. No swelling or TTP. TTP of the lateral epicondyles Shoulders * Right shoulder: Full ROM. No swelling noted. TTP of the subacromial bursa * Left shoulder: Full ROM. No swelling noted. TTP of the subacromial bursa Hip bursa: Tenderness to palpation bilaterally Knees * Right knee: Full ROM. No swelling noted. No TTP of the knee joint lie * Left knee: Full ROM. No swelling noted. No TTP of the knee joint lie * TTP of bilateral pes anserine bursa. Ankles * Right ankle: Good ankle dorsiflexion and plantar flexion. No swelling. No TTP of the ankle joint * Left ankle: Good ankle dorsiflexion and plantar flexion. No swelling. No TTP of the ankle joint Feet * Right foot: Negative squeeze test * Left foot: Negative squeeze test Tender points? * Tenderness to palpation of the bilateral trapezius, supraspinatus, anterior costochondral junctions, bilateral suboccipital muscle insertions SKIN No rashes Results Reviewed Results Reviewed: Laboratory Tests 02/01/22 03/30/22 08:42 13:55 WBC 9.2 RBC 5.01 Hgb 15.4 Hct 44.9 Plt Count 262 ESR 5 Sodium 141 Potassium 3.9 Chloride 106 Carbon Dioxide 26 BUN 19 H Creatinine 0.88 AST 25 ALT 39 H Alkaline Phosphatase 100 Total Creatine Kinase 84 C-Reactive Protein 0.14 Total Protein 6.8 Assessment & Plan Assessment & Plan (1) Fibromyalgia, primary: Code(s): M79.7 - Fibromyalgia Category: Medical Plan: #Fibromyalgia Patient is a 53-year-old female here today for follow up. Previously thought to have Sjogren's syndrome based on positive DEANA and sicca symptoms. No objective findings of Sjogren's symptoms and patient did not respond to Plaquenil or methotrexate. On exam today I do not see any evidence of any synovitis. She does have a lot of fibromyalgia tender points and she is tender all over to be honest. I do think that she has only fibromyalgia at this time. Plan - Gabapentin 300mg nightly - Meloxicam 15mg daily - RTC 6 months - Labs before visit: CBC, CMP, ESR, CRP Plan I spent 25 minutes reviewing the record and labs, taking a history, examining the patient, discussing the treatment plan, ordering diagnostic work up and documenting in the medical record Orders: Orders Complete Blood Count Auto Diff 6 Months . - Fibromyalgia Comprehensive Met. Panel 6 Months . - Fibromyalgia C Reactive Protein 6 Months . - Fibromyalgia Erythrocyte Sedimentation Rate 6 Months . - Fibromyalgia Medications: New gabapentin 300 mg PO BEDTIME 90 caps 1RF . - Fibromyalgia meloxicam 15 mg PO DAILY 90 tabs 1RF . - Fibromyalgia Coding Level of Care Code Est Pt Level 3 (09080) Complex EM visit Add On G2211 Diagnoses Fibromyalgia, primary M79.7
== END 2024-08-28 16:02 | disposition home or self-care (01) ==
LOC: HO.RHE 15:05
PROVIDERS: PCP Student in an Organized Health Care Education/Training Program; Visit Provider Student in an Organized Health Care Education/Training Program
DX: M79.7 Fibromyalgia (principal)
CPT/HCPCS: 99213; G2211

== ENCOUNTER → 2024-08-28 15:05 | Outpatient (BNVA) | payer OTHER, SELFPAY | PROVIDERS: PCP Student in an Organized Health Care Education/Training Program; Visit Provider Student in an Organized Health Care Education/Training Program | DX: M79.7 Fibromyalgia (principal) | CPT/HCPCS: 99212 ==

== ENCOUNTER 2024-12-28 09:22 | Outpatient (REF) | payer OTHER, SELFPAY ==
--- OUTSIDE RECORDS SUMMARY | 2024-12-28 10:24 | XMS_ITS | Clinical Summary ---
Author Organization [facility] Address [address] [place] [address] Care Team Providers Care Drain Cleaner Name Role Phone Ruchi Johnson MD Primary Care Provider [phone] [phone] Allergies No known active allergies Medications Medication [...] 3 11/18/2023 Active ergocalciferol (VITAMIN D2) capsule 46978 units Take 1 capsule (50,000 Units total) [...] Td or Tdap) 11/02/2024 11/02/2014 Influenza Vaccine (#1) 2024 Shingrix-Zoster Vaccine Completed 03/16/19 23, 11/07/2021 Pneumococcal Vaccine Aged Out No long er eligible based on patient's age to complete this topic RSV Ped < 20 months Aged Out No longe r eligible based on patient's age to complete this topic Care Teams Drain Cleaner Relationship Specialty Start Date End Date Ruchi Johnson MD [address] [place] [id number] PCP - General Internal Medicine 09/24/23
--- OUTSIDE RECORDS SUMMARY | 2024-12-28 10:24 | XMS_ITS | Clinical Summary ---
Author Organization [facility] Address [address] [place] [address] Phone Care Team Providers Care Medical Insurance Verifier Name Role Phone Jean Finney MD Primary Care Provider [phone] Allergies No known active allergies Medications albuterol HFA (Ventolin HFA) 90 mcg/actuation inhaler 02/02/20 22 Active loratadine (CLARITIN) 10 mg tablet Take 1 tablet (10 mg total) by mouth daily. - Oral 06/19/19 24 Active minoxidiL (LONITEN) 2.5 mg tablet Take 0.5 tablets (1.25 mg total) by mouth daily. - Oral 02/06/20 23 Active montelukast (SINGULAIR) 10 mg tablet 08/29/19 23 Active spironolactone (ALDACTONE) 50 mg tablet Take 1 tablet (50 mg total) by mouth. - Oral 06/19/19 24 Active FLUoxetine (PROzac) 40 mg capsule Take 1 capsule (40 mg total) by mouth. - Oral Active fluticasone propionate (FLONASE) 50 mcg/actuation nasal spray Administer 2 sprays into each nostril 1 (one) time each day if needed for rhinitis or allergies. Shake gently. Before first use, prime pump. After use, clean tip and replace cap. 16 g 3 04/20/19 25 Active amitriptyline (ELAVIL) 50 mg tablet Take 1 tablet (50 mg total) by mouth at bedtime. Take 1 tablet (75 mg total) by mouth every night at bedtime. - Oral 30 each 5 08/04/19 25 01/30/ 025 Active acetaminophen (TYLENOL) 500 mg tablet Take 1 tablet (500 mg total) by mouth every 6 (six) hours if needed for moderate pain, headaches or fever - temperature GREATER than 38 C (100.4 F). for pain 90 tablet 3 08/05/19 25 Active aspirin 81 mg EC tablet Take 1 tablet (81 mg total) by mouth 1 (one) time each day. 90 each 1 08/05/19 25 025 Active SUMAtriptan (IMITREX) 50 mg tablet 1 po at onset of migraine. May repeat in 2h PRN. Max 2 tabs/day 9 tablet 5 08/05/19 25 Active losartan (COZAAR) 25 mg tablet Take 1 tablet (25 mg total) by mouth 1 (one) time each day. Take 1 tablet (25 mg total) by mouth daily. - Oral 90 tablet 1 08/06/19 25 Active hydroCHLOROthia zide (HYDRODIURIL) 25 mg tablet Take 1 tablet (25 mg total) by mouth 1 (one) time each day. 90 tablet 1 08/06/19 25 Active levothyroxine (SYNTHROID, LEVOTHROID) 112 mcg tablet Take 1 Tablet by mouth daily. Take 2 tablets on Sundays. 306 tablet 1 08/06/19 25 Active ibuprofen (ADVIL,MOTRIN) 800 mg tablet Take 1 tablet (800 mg total) by mouth every 8 (eight) hours if needed for mild pain. 180 tablet 1 08/06/19 25 Active alendronate (FOSAMAX) 70 mg tablet Take 1 tablet (70 mg total) by mouth every 7 (seven) days. Take in the morning with a full glass of water, on an empty stomach, and do not take anything else by mouth or lie down for the next 30 min. 12 each 1 08/06/19 25 026 Active LORazepam (Ativan) 0.5 mg tablet 1 po hr prior to MRI, may repeat 1 at time of MRI if needed 2 tablet 09/24/19 25 Active meloxicam (MOBIC) 15 mg tablet Take 1 tablet (15 mg total) by mouth 1 (one) time each day. 10/08/19 25 Active gabapentin (NEURONTIN) 300 mg capsule Take 1 capsule (300 mg total) by mouth at bedtime. at bedtime 10/08/19 25 Active galcanezumab-gn lm (EMGALITY) 120 mg/mL syringeIndicati ons:Chronic migraine without aura without status migrainosus, not intractable Inj 240 mg subcutaneously as directed once for loading dose, then in 1 month begin 120 mg monthly 2 each 11/27/19 Active Active Problems Problem Noted Date Diagnosed Date Allergic rhinitis 04/20/2024 Primary hypertension 03/25/2024 Migraine without status migrainosus, not intract able 03/25/2024 Osteoporosis 03/25/2024 Moderate asthma without complication 03/25/2024 Depression 03/25/2024 Hair loss 03/25/2024 Encounters Date Type Department Care Team Description 11/26/2024 4:30 PM EDT Office Visit [facility] [address] [facility] [address] [place] [address] Mary Lopez PA Chronic migraine without aura without status migrainosus, not intractable (Primary Dx) 10/06/2024 5:13 PM EDT - 10/06/2024 11:59 PM EDT Hospital Encounter [facility] MRI [address] [place] [address] Chronic migraine without aura without status migrainosus, not intractable Discharge Disposition: Home or Self Care from Last 3 Months Surgical History Surgery Date Site/Laterality Comments SECTION PROCEDURE: HISTORICAL DELIVERY; COMMENT: x1 OTHER SURGICAL HISTORY PROCEDURE: ---- OTHER ----; COMMENT: surgery for kidney stones? cystoscopy OTHER SURGICAL HISTORY 05/17 Bilateral PROCEDURE: OH UNLISTED PROCEDURE ORBIT; COMMENT: for orbitopathy by Carlos ESOPHAGOGASTRODUODENOSCOPY PROCEDURE: OH EGD TRANSORAL BIOPSY SINGLE/MULTIPLE; COMMENT: Performed on March 05, 2019 with COLONOSCOPY PROCEDURE: HISTORICAL COLONOSCOPY Medical History Medical History Date Comments HTN (hypertension) DX:HTN (hyper tension) History of kidney stones 1998 DX:Hist ory of kidney stones; COMMENT: had surgery done Thyrotoxicosis without menti on of goiter or other cause, without mention of thyrotoxic crisis or storm 06/12/2013 DX:Thyrotoxicosis withou t mention of goiter or other cause, without mention of thyrotoxic crisis or storm DEANA positive 11/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 Depression 01/30/2017 DX:Depression; C OMMENT: Follows Dr Early Hoarseness of voice DX:Hoarsenes s of voice Esophagitis DX:Esophagitis PND (post-nasal drip) DX:PND (po st-nasal drip) Anxiety state DX:Anxiety state Hyperlipidemia DX:Hyperlipidemi a Moderate asthma without complication 03/25/2024 Family History Medical History Relation Name Comments Other: headaches Brother 1 Heart attack Father Hypertension Father Nephrolithiasis Father Stroke Father Breast cancer Neg Hx Colon cancer Neg Hx Ovarian cancer Neg Hx Uterine cancer Neg Hx Relation Name Status Comments Brother 1 Brother 2 Alive Father Alive Mother Alive Social History Tobacco Use Types Packs/Day Years Used Date Smoking Tobacco: Former Cigarettes Q uit: 08/03/2011 Smokeless Tobacco: Never Tobacco Cessation:Counseling Given: Not Answered Alcohol Use Standard Drinks/Week Comments No 0 (1 standard drink = 0.6 oz pur e alcohol) Housing Instability Answer Date Recorde d Are you worried that in the next 2 months you may not have stable housing? Unable to respond 03/20/2024 Food Access & Nutrition Answer Date Rec orded Do you have access to a vari ety of food including fruits and vegetables? No 03/20/2024 Access to Healthcare Answer Date Record ed Within the last 3 months, ho w many times did you visit the emergency department for your medical care? 0 03/20/2024 Health Literacy Answer Date Recorded How often do you need to hav e someone help you when you read instructions, pamphlets, or other written material from your doctor or pharmacy? Patient declined 03/20/2024 Caregiver: How often do you need to have someone help you when you read instructions, pamphlets, or other written material from your doctor or pharmacy? Not on file 025 Financial Risk Answer Date Recorded How hard is it for you to pa y for the very basics like food, housing, medical care, and air conditioning / heating? Hard 03/20/2024 Transportation Answer Date Recorded Has the lack of transportati on kept you from meetings, work, or from getting things needed for daily living? No Has the lack of transportati on kept you from medical appointments or from getting medications? No 03/20/2024 Social Isolation Answer Date Recorded How often do you feel lonely or isolated from th ose around you? Often 03/20/2024 Food Risk Answer Date Recorded Within the past 12 months we worried whether our food would run out before we got money to buy more. Unable to respond 025 Within the past 12 months th e food we bought just didn't last and we didn't have money to get more. Unable to respond 03/04 Education Answer Date Recorded Do you think completing more education or training, like finishing a GED, going to college, or learning a trade, would be helpful for you? Unable to respond 03/20/2024 Employment and Income Answer Date Recor ded During the last four weeks, have you been actively looking for work? No 03/20/2024 Living Situation Answer Date Recorded What is your living situation? Unrecognized valu e 03/20/2024 Comments Unknown Sex and Gender Information Value Date Recorded Sex Assigned at Not on file Legal Sex Female 4:51 AM EST Gender Identity Not on file Sexual Orientation Not on file Obstetrics History Last Filed Vital Signs Vital Sign Reading Time Taken Comments Blood Pressure 114/73 11/26/2024 4:20 PM EDT Pulse 75 11/26/2024 4:20 PM EDT Temperature 36.2 C (97.2 F) 09/23/2024 4:21 PM EDT Respiratory Rate - - Oxygen Saturation 98% 11/26/2024 4:20 PM EDT Inhaled Oxygen Concentration - - Weight 67.1 kg (148 lb) 11/26/2024 4:20 PM EDT Height 152.4 cm (5') 09/23/2024 4:21 PM EDT Body Mass Index 28.9 09/23/2024 4:21 PM EDT Plan of Treatment Upcoming Encounters Date Type Department Care Team (Late st Contact Info) Description 03/11/2025 4:30 PM EST Office Visit [facility] [place] [facility] [address] [facility] [address] [place] [id number] Mary Lopez PA [address] [facility] [address] [place], [place] [id number] 04/26/2025 8:30 AM EST Office Visit Internal Medicine - Odd [address] [facility] [address] [place] [address] Jean Finney MD [address] [facility] [address] [place] [address] Health Maintenance Due Date Last Done Comments Pneumococcal Vaccine: 50+ Years (1 of 2 - PCV) 1988 RSV Immunization Adult Patients (1 - Risk 50-74 years 1-dose series) 11/28/2019 Hepatitis B Vaccines (2 of 3 - 19+ 3-dose series) 06/05/2021 05/08/2021 HIV Screening 02/10/2022 Hepatitis C Screening 02/10/2022 COVID-19 Vaccine (1 - season) 2024 Influenza Vaccine (#1) 2024 Colorectal Cancer Screening: Colonoscopy 03/02/2025 03/02/2020 Social Influencers of Health Screening 03/20/2025 03/20/2024 Hypertension/CHF/CAD Annual BMP Blood Test 04/16/2025 04/16/2024, 11/15/2023, 09/18/2023 Breast Cancer Screening 04/18/2025 04/18/19 24, 04/16/2022, 06/14/2020, Additional history exists Cervical Cancer Screening: Pap Smear 04/10/2026 04/10/2023, 03/21/2018 DTaP,Tdap,and Td Vaccines (3 - Td or Tdap) 04/12/2026 04/12/2016, 11/02/2014 Cholesterol Screening (Lipid Panel) 04/16/2029 04/16/2024 Osteoporosis Screening (Bone Density Screening) 04/17/2032 04/17/2022 MMR Vaccines Aged Out 05/08/2021, 05/08/2021 No lo nger eligible based on patient's age to complete this topic Varicella Vaccines Aged Out 05/08/2021 No longer eligible based on patient's age to complete this topic Zoster Vaccines Completed 03/16/2022, 08/2021, 05/08/2021 Depression Screening Completed 03/20/2024 HIB Vaccines Aged Out No longer eligi ble based on patient's age to complete this topic HPV Vaccines Aged Out No longer eligi ble based on patient's age to complete this topic Hepatitis A Vaccines Aged Out No long er eligible based on patient's age to complete this topic IPV Vaccines Aged Out No longer eligi ble based on patient's age to complete this topic Meningococcal ACWY Vaccine Aged Out N o longer eligible based on patient's age to complete this topic Meningococcal B Vaccine Aged Out No l onger eligible based on patient's age to complete this topic RSV Immunization Patients Under 20 months Aged Out No longer eligible based on patient's age to complete this topic Procedures Procedure Name Priority Date/Time Associated Diagnosis Comments MR BRAIN WO CONTRAST Routine 10/06/2024 5:42 PM EDT Chronic migraine without aura without status migrainosus, not intractable COMPREHENSIVE METABOLIC PANEL Routine 04/16/2024 8:00 AM EST Adult general medical examination LIPID PANEL WITH REFLEX TO DIRECT LDL Routine 04/16/2024 8:00 AM EST Encounter for lipid screening for cardiovascular disease SCREENING MAMMOGRAPHY BI 2-VIEW BREAST INC CAD Routine 04/18/2023 5:17 PM EST Encounter for screening mammogram for malignant neoplasm of breast PAP SMEAR Routine 04/10/2023 DXA BONE DENSITY STUDY 1+ SITS AXIAL SKEL Routine 04/17/2022 9:31 AM EST Encounter for general adult medical examination without abnormal findings from Last 3 Months or Most Recently Relevant to Health Maintenance Results * MR Brain wo Contrast (10/06/2024 5:42 PM EDT) Anatomical Region Laterality Modality Head and Neck Magnetic Resonan ce 10/06/2024 6:11 PM EDT Impressions 10/06/2024 6:20 PM EDT No acute findings. Stable white matter lesions compared to 2023. -------- FINAL REPORT -------- Dictated By: Farhana Garcia Dictated Date: 10/06/2024 18:11 ET Assigned Physician: Farhana Garcia Reviewed and Electronically Signed By: Farhana Garcia Signed Date: 10/06/2024 18:20 ET Workstation ID: [id number] Transcribed By: Self Edit Transcribed Date: 10/06/2024 18:11 ET Narrative 10/06/2024 6:20 PM EDT HISTORY: White matter lesions. TECHNIQUE: Routine MRI of the brain without contrast. COMPARISON: 08/01/2023 FINDINGS: No acute territorial infarct, mass effect, or intracranial hemorrhage. Stable scattered periventricular and subcortical white matter T2/FLAIR hyperintensities unchanged from 08/01/2023 could represent sequelae of migraine headache or possibly demyelinating lesions in the proper clinical setting. No hydrocephalus. Thickening versus retention cyst sphenoid sinus. No calvarial fracture. Orbits unremarkable. Procedure Note Farhana Garcia MD - 10/06/2024 HISTORY: White matter lesions. TECHNIQUE: Routine MRI of the brain without contrast. COMPARISON: 08/01/2023 FINDINGS: No acute territorial infarct, mass effect, or intracranial hemorrhage. Stable scattered periventricular and subcortical white matter T2/FLAIRhyperintensities unchanged from 08/01/2023 could represent sequelae ofmigraine headache or possibly demyelinating lesions in the proper clinicalsetting. No hydrocephalus. Thickening versus retention cyst sphenoid sinus. No calvarial fracture. Orbits unremarkable. IMPRESSION: No acute findings. Stable white matter lesions compared to 2023. -------- FINAL REPORT -------- Dictated By: Farhana Garcia Dictated Date: 10/06/2024 18:11 ET Assigned Physician: Farhana Garcia Reviewed and Electronically Signed By: Farhana Garcia Signed Date: 10/06/2024 18:20 ET Workstation ID: [id number] Transcribed By: Self Edit Transcribed Date: 10/06/2024 18:11 ET [facility] [place] PROCEDURES Final Res ult * (ABNORMAL) Lipid panel with reflex to direct LDL (04/16/2024 8:00 AM EST) Cholesterol 231(H) 0 - 200 mg/dL LAB CHEMISTRY METHOD 04/16/2024 10:23 AM EST [facility] Triglycerides 195(H) 0 - 150 mg/dL LAB CHEMISTRY METHOD 04/16/2024 10:23 AM EST [facility] HDL 45 >=40 mg/dL LAB CHEMISTRY METHOD 04/16/2024 10:23 AM EST [facility] LDL Calculated 147(H) 0 - 100 mg/dL LAB CHEMISTRY METHOD 04/16/2024 10:23 AM [facility] VLDL Cholesterol Brody 39 mg/dL LAB CHEMISTRY METHOD 04/16/2024 10:23 AM [facility] Non HDL Chol. (LDL+VLDL) 186(H) <145 mg/dL LAB CHEMISTRY METHOD 04/16/2024 10:23 AM [facility] Chol/HDL Ratio 5.1(H) 0.0 - 4.4 LAB CHEMISTRY METHOD 04/16/2024 10:23 AM [facility] Blood Venous blood specimen / Unknown Venipuncture / Unknown 04/16/2024 8:00 AM EST 04/16/2024 8:00 AM EST Jean Finney MD LAB BLOOD ORDERABLES Final Resul t [facility] [address] [place] [address], * Comprehensive metabolic panel (04/16/2024 8:00 AM EST) Sodium 140 133 - 145 mmol/L LAB CHEMISTRY METHOD 04/16/2024 10:23 AM [facility] Potassium 4.2 3.5 - 5.5 mmol/L LAB CHEMISTRY METHOD 04/16/2024 10:23 AM [facility] Chloride 105 96 - 110 mmol/L LAB CHEMISTRY METHOD 04/16/2024 10:23 AM [facility] CO2 30 21 - 32 mmol/L LAB CHEMISTRY METHOD 04/16/2024 10:23 AM [facility] Anion Gap 5 3 - 11 LAB CHEMISTRY METHOD 04/16/2024 10:23 AM [facility] Glucose 82 70 - 100 mg/dL LAB CHEMISTRY METHOD 04/16/2024 10:23 AM [facility] BUN 11 5 - 25 mg/dL LAB CHEMISTRY METHOD 04/16/2024 10:23 AM [facility] Creatinine 0.93 0.50 - 1.10 mg/dL LAB CHEMISTRY METHOD 04/16/2024 10:23 AM [facility] eGFR 73 >=60 mL/min/1. 73m2 LAB CHEMISTRY METHOD 04/16/2024 10:23 AM [facility] Comment:Calculation based on the Chronic Kidney Disease Epidemiology Collaboration (CKD-EPI) equation refit without adjustment for race. BUN/Creatinine Ratio 11.8 LAB CHEMISTRY METHOD 04/16/2024 10:23 AM [facility] Calcium 9.9 8.5 - 10.5 mg/dL LAB CHEMISTRY METHOD 04/16/2024 10:23 AM [facility] AST (SGOT) 21 10 - 42 unit/L LAB CHEMISTRY METHOD 04/16/2024 10:23 AM [facility] ALT (SGPT) 38 10 - 60 unit/L LAB CHEMISTRY METHOD 04/16/2024 10:23 AM [facility] Alkaline Phosphatase 108 42 - 121 unit/L LAB CHEMISTRY METHOD 04/16/2024 10:23 AM [facility] Total Protein 7.1 6.0 - 8.0 g/dL LAB CHEMISTRY METHOD 04/16/2024 10:23 AM [facility] Albumin 4.0 3.2 - 5.0 g/dL LAB CHEMISTRY METHOD 04/16/2024 10:23 AM [facility] Total Bilirubin 0.6 0.0 - 1.4 mg/dL LAB CHEMISTRY METHOD 04/16/2024 10:23 AM [facility] Blood Venous blood specimen / Unknown Venipuncture / Unknown 04/16/2024 8:00 AM EST 04/16/2024 8:00 AM EST Jean Finney MD LAB BLOOD ORDERABLES Final Resul t [facility] [address] [place] [address], * SCREENING MAMMOGRAPHY BI 2-VIEW BREAST INC CAD (04/18/2023 5:17 PM EST) Anatomical Region Laterality Modality Radiographic Jaz ging 04/16/2022 5:28 PM EST Narrative 04/19/2023 11:46 AM EST This is a summary report. The complete report is available in the patient's medical record. If you cannot access the medical record, please contact the sending organization for a detailed fax or copy. Full field digital screening tomosynthesis mammography, reviewed with CAD and compared to previous. The breast tissue is heterogeneously dense, limiting sensitivity. No suspicious mass, architectural distortion or suspicious calcifications are identified. IMPRESSION: : Dense breast tissue, limiting the sensitivity of mammography. No mammographic evidence of malignancy. BIRADS 1-Negative; N. Procedure Note Owen Moralez MD - 10/21/2023 This is a summary report. The complete report is available in thepatient's medical record. If you cannot access the medical record, pleasecontact the sending organization for a detailed fax or copy. Full field digital screening tomosynthesis mammography, reviewed with CADand compared to previous. The breast tissue is heterogeneously dense,limiting sensitivity. No suspicious mass, architectural distortion orsuspicious calcifications are identified. IMPRESSION: : Dense breast tissue, limiting the sensitivity of mammography. Nomammographic evidence of malignancy. BIRADS 1-Negative; N. us Mary Cox DO IMG XR PROCEDURES Final Result * Pap smear (04/10/2023) 04/10/2023 Narrative HISTORICAL TESTING LAB RESULTING AGENCY - 04/19/2023 3:50 PM EST [id number] THINPREP PAP, IMAGED: NEGATIVE FOR SQUAMOUS INTRAEPITHELIAL LESION AND MALIGNANCY . PRECIOUS LYON(ASCP) (CASE ELECTRONICALLY SIGNED 04 19 2023) RESULT OF APTIMA HIGH RISK HPV ASSAY: HIGH RISK HPV: NEGATIVE (SEROTYPES 16,18,31,33,35,39,45,51,52,56,58,59,66,68) COMPLETED ON 2023-04-12 ADEQUACY: SATISFACTORY ENDOCERVICAL/TRANSFORMATION ZONE COMPONENT PRESENT. SOURCE: THINPREP PAP HPV ANY DX: REFLEX 16 AND 18, CERVICAL, IMAGED CLINICAL INFORMATION: HPV ANY DIAGNOSIS. HORMONES, PAP HX NEGATIVE, [[id number]] us Low Pierce [facility] CYTOLOGY ORDERABLES Final Result HISTORICAL TESTING LAB RESULTING AGENCY * DXA BONE DENSITY STUDY 1+ SITS AXIAL SKEL (04/17/2022 9:31 AM EST) Anatomical Region Laterality Modality Bone Densitometr y 04/02/2022 8:47 AM EST Narrative 04/17/2022 6:50 PM EST BONE DENSITY SCAN (DEXA): FINDINGS: Lumbar Spine T-score is -2.5. (SD relative to 20-29 y/o adult) Z-score is -1.6. (SD relative to age matched peers) This is considered osteoporosis by WHO criteria. Left Hip T-score is -1.3. Z-score is -0.8. This is considered osteopenia by WHO criteria. Comparison exam(s): None. Lateral survey view of the thoracolumbar spine shows no significant compression deformities of the visualized vertebral elements. IMPRESSION: IMPRESSION: Osteoporosis by WHO criteria. The [facility] Department of Internal Medicine recommends using National Osteoporosis Foundation (NOF) guidelines in treatment decisions related to osteoporosis. NOF guidelines suggest considering treatment for postmenopausal women and men aged 50 or older presenting with the following: History of hip or vertebral fracture. T-score = -2.5 (DXA) at the femoral neck, total hip, or spine, after appropriate evaluation to exclude secondary causes. Low bone mass (T-score between -1.0 and -2.5 at the femoral neck or spine) AND a 10-year probability of a hip fracture = 3% OR a 10-year probability of a major osteoporosis-related fracture = 20% based on the [place]-adapted WHO algorithm Please note that all treatment decisions require clinical judgment and consideration of individual patient factors, including patient preferences, co-morbidities, previous drug use, risk factors not captured in the FRAX model (e.g., frailty, falls, vitamin D deficiency, increased bone turnover, interval significant decline in bone density) and possible under- or over-estimation of fracture risk by FRAX. Optional alternative screening schedule based on escobar Call al., [facility] March 22, 2011 for patients with osteopenia (based on hip BMD T-score) is as follows: * advanced osteopenia (T scores -2.00 to -2.49), BMD testing every year * moderate osteopenia (T scores -1.50 to -1.99), BMD testing every 5 years mild osteopenia or normal BMD (T scores -1.50 and higher), BMD testing every 15 years Procedure Note Chastity Allison MD - 04/08/2023 BONE DENSITY SCAN (DEXA): FINDINGS: Lumbar Spine T-score is -2.5. (SD relative to 20-29 y/o adult) Z-score is -1.6. (SD relative to age matched peers) This is considered osteoporosis by WHO criteria. Left Hip T-score is -1.3. Z-score is -0.8. This is considered osteopenia by WHO criteria. Comparison exam(s): None. Lateral survey view of the thoracolumbar spine shows no significantcompression deformities of the visualized vertebral elements. IMPRESSION: IMPRESSION: Osteoporosis by WHO criteria. The [facility] Department of Internal Medicine recommendsusing National Osteoporosis Foundation (NOF) guidelines in treatment decisions related toosteoporosis. NOF guidelines suggest considering treatment for postmenopausal women and menaged 50 or older presenting with the following: History of hip or vertebral fracture. T-score = -2.5 (DXA) at the femoral neck, total hip, or spine, afterappropriate evaluation to exclude secondary causes. Low bone mass (T-score between -1.0 and -2.5 at the femoral neck or spine)AND a 10-year probability of a hip fracture = 3% OR a 10-year probability of a majorosteoporosis-related fracture = 20% based on the [place]-adapted WHO algorithm Please note that all treatment decisions require clinical judgment andconsideration of individual patient factors, including patient preferences, co- morbidities,previous drug use, risk factors not captured in the FRAX model (e.g., frailty, falls, vitaminD deficiency, increased bone turnover, interval significant decline in bone density) andpossible under- or over-estimation of fracture risk by FRAX. Optional alternative screening schedule based on escobar Call al., NEJJanuary 2011 for patients with osteopenia (based on hip BMD T-score) is as follows: * advanced osteopenia (T scores -2.00 to -2.49), BMD testing every year * moderate osteopenia (T scores -1.50 to -1.99), BMD testing every 5years mild osteopenia or normal BMD (T scores -1.50 and higher), BMD testingevery 15 years Low Pierce CNM IMG DXA PROCEDURES Final Resu lt from Last 3 Months or Most Recently Relevant to Health Maintenance [place] [address] [place] [address] PLAN Care Teams Medical Insurance Verifier Relationship Specialty Start Date End Date Jean Finney MD [address] [place] [phone] PCP - General Internal Medicine 02/21/24
[2024-12-28 13:19] LABS: MANUAL DIFF FLAG NO
[2024-12-28 13:42] LABS: Hematocrit 45.9 % (37.0-47.0); Hemoglobin 15.4 g/dl (12.0-16.0); Imm Gran Abs Auto 0.02 X10*3/uL (0.00-0.03); Imm Gran Pct Auto 0.4 % (0.0-0.4); Lymphocytes Absolute Auto 1.8 X10*3/uL (1.2-4.9); Mean Corpuscular HGB Conc 33.6 g/dl (31.0-35.0); Mean Corpuscular Hemoglobin 31.4 pg (27.0-33.0); Mean Corpuscular Volume 93.7 fL (80.0-98.0); NRBC Abs Auto 0.000 X10*3/uL (0.0-0.012); NRBC Pct Auto 0.0 /100WBC (0.0-0.2); Platelet Count 266 X10*3/uL (160-400); Red Blood Count 4.90 X10*6/uL (4.20-5.50); White Blood Count 5.6 X10*3/uL (4.8-10.8)
[2024-12-28 13:54] LABS: Alanine Aminotransferase 67 U/L (0-31); Albumin Level 4.5 g/dL (3.5-5.0); Alkaline Phosphatase 119 U/L (39-117); Anion Gap 11 (12-20); Aspartate Amino Transferase 40 U/L (5-31); Blood Urea Nitrogen 12 mg/dL (9-16); Calcium 9.6 mg/dL (8.4-10.2); Carbon Dioxide 28 mmol/L (22-29); Chloride 107 mmol/L (96-108); Estimated Glomerular Filt Rate 59; Potassium 3.5 mmol/L (3.3-5.1); Sodium 142 mmol/L (135-145); Total Protein 7.1 g/dL (6.5-8.0)
== END 2024-12-28 09:23 | disposition home or self-care (01) ==
LOC: HO.HKASLDS 09:22
PROVIDERS: Visit Provider Student in an Organized Health Care Education/Training Program
DX: M79.7 Fibromyalgia (principal)
CPT/HCPCS: 36415; 80053; 85025; 85652; 86140

== ENCOUNTER 2024-12-31 14:58 | Outpatient (AMB) | payer OTHER, SELFPAY ==
--- NOTE | 2024-12-31 15:00 | A.OFFVIS_ITS ---
Vital Signs 12/31/24 15:06 Height 5 ft Weight 147 lb 4.301 oz BMI 28.8 BP 132/80 Blood Pressure Location Lt brachial Position Sitting Pulse 77 Pulse Source Pulse Oximeter Pulse Oximetry (%) 98 Oxygen Delivery Method Room Air Intake Visit Reasons: UCTD/FMS Intake Note: Patient presents for UCTD/FMS follow up. Allergies No Known Allergies Allergy (Verified 12/31/24 15:06) Medication List - Last Reconciled 12/31/24 by Priya Li MD acetaminophen (Tylenol Extra Strength) 1,000 mg PO Q6H PRN alendronate 70 mg PO QWEEK amitriptyline 50 mg PO BEDTIME fluticasone furoate-vilanterol 200-25 mcg/dose (Breo Ellipta) 1 ea inhalation DAILY fluticasone propionate 50 mcg/actuation (Allergy Relief (fluticasone)) 1 spray intranasal DAILY gabapentin 300 mg PO BEDTIME hydrochlorothiazide 25 mg PO DAILY levothyroxine 100 mcg PO DAILY losartan 25 mg PO DAILY meclizine 12.5 mg PO TID PRN meloxicam 15 mg PO DAILY minoxidil 1.25 mg PO DAILY montelukast 10 mg PO DAILY spironolactone (Aldactone) 50 mg PO DAILY sumatriptan succinate take 1 tab at onset of headache; if no relief may repeat 1 tab after at least 2 hrs; max = 4 tabs/24 hr PO Ventolin HFA 90 mcg/actuation (albuterol sulfate) 1 puff PO Q4-6H PRN NS HPI Comments Details: Patient is a 54 y.o. female with HTN, Grave's disease s/p RI abalation and subsequent hypothyroidism, DEL, asthma, and fibromyalgia here today for follow up Interval History: Patient last seen 08/28/24 - On gabapentin 300mg and meloxicam 15mg daily - Continues to complain of diffuse pain - Conservative measures advised Today - On gabapentin 300mg and meloxicam 15mg daily - Continues to complain of diffuse pain - Also taking OTC Tylenol Rheumatologic History: previously diagnosed with Sjogren's based on positive DEANA, diffuse pain (? Inflammatory arthritis) and dry eyes and dry mouth. Patient also has a positive thyroperoxidase antibody. She has negative Sjogren's antibodies. She was on hydroxychloroquine for 3 years which was stopped with no worsening of joint pain. Methotrexate was briefly tried in 2019 which was ineffective. Ultimately diagnosed with fibromyalgia - tried gabapentin Initial history: This is a 51-year-old female with past medical history of thyroid disease s/p radioiodine ablation, childhood asthma presents for evaluation of Sjogren's. Patient was diagnosed with Sjogren's syndrome 4-5 years ago with a positive DEANA, dry eyes and dry mouth and diffuse pain. She was started on hydroxychloroquine and took it for about 3 years. She stated that hydroxychloroquine initially provided some relief but he was stopped by her PCP about a year ago. Patient states that her symptoms did not change after stopping the Plaquenil. She was also tried briefly 2019 on methotrexate for joint pain but it was ineffective. Patient was evaluated by Ophthalmology before but she denied ever getting any artificial tears. Patient stated that she was diagnosed with COVID about 4-5 weeks ago and she still has some shortness of breath. She states that she had asthma as a child and used to take syrup for it, denied ever needing inhalers. She was admitted for asthma as a child multiple times but denied ever getting intubated. She denies any fevers or weight loss. She continues to have diffuse pain Current Rheumatology Medication(s): Gabapentin 300mg nightly Meloxicam 15mg daily PFSH Medical History (Updated 12/31/24 @ 15:39 by Priya Li MD) Hypothyroidism Hypertension Surgical History Hx of eye surgery H/O radioactive iodine thyroid ablation Family History Father Hypertension Kidney stones Brother Chronic headaches Social History Household Members: Family Housing: Apartment Are you a primary medicare interviewer to a significant other at home: No Do you presently have visiting nurse or other home services: No 75 years or older and lives alone: No Alcohol intake: never Patient Tobacco Use Status: Never used Tobacco e-Cigarette/Vaping Use: Never Used service: No Current occupational status: employed 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 Review of Systems Narrative Review of Systems Constitutional: Denies fever, chills, weight loss ENT: Denies vision changes, eye pain or eye redness, dental caries, dry mouth GI: Denies nausea, vomiting, diarrhea, abdominal pain, change in BM Pulm: Denies SOB, CALIXTO, hemoptysis, wheezing Cards: Denies chest pain, palpitations Skin: Denies Raynaud's, rash, nail changes, photosensitivity, RETURNED MATERIALS INSPECTOR: Denies headaches, weakness, paresthesias, recurrent falls MSK: as per HPI All other systems reviewed and are unremarkable except noted above Physical Exam Exam Exam: Vital signs reviewed Physical Examination CONSTITUITIONAL Patient alert and cooperative. Well appearing and in no apparent painful distress MSK Hands * Right Hand: Able to make a fist. No swelling or tenderness to palpation of the MCPs, PIPs or DIPs. * Left Hand: Able to make a fist. No swelling or tenderness to palpation of the MCPs, PIPs or DIPs. Wrists * Right Wrist: Full ROM to flexion and extension. No swelling or TTP * Left Wrist: Full ROM to flexion and extension. No swelling or TTP Elbows * Right Elbow: Full ROM. No swelling or TTP. No TTP of the medial epicondyle. TTP of the lateral epicondyle * Left Elbow: Full ROM. No swelling or TTP. No TTP of the medial epicondyle. No TTP of the lateral epicondyle Shoulders * Right shoulder: No swelling noted. No TTP of the AC joint. No TTP of the subacromial bursa. No TTP of the posterior shoulder * Left shoulder: No swelling noted. No TTP of the AC joint. No TTP of the subacromial bursa. No TTP of the posterior shoulder Knees * Right knee: Full ROM. No swelling noted. No TTP of the knee joint line. No TTP of pes anserine bursa * Left knee: Full ROM. No swelling noted. No TTP of the knee joint line. No TTP of pes anserine bursa. Ankles * Right ankle: Good ankle dorsiflexion and plantar flexion. No swelling. No TTP of the ankle joint * Left ankle: Good ankle dorsiflexion and plantar flexion. No swelling. No TTP of the ankle joint Feet * Right foot: Negative squeeze test * Left foot: Negative squeeze test Tender points? * Tenderness to palpation of the bilateral trapezius, supraspinatus, anterior costochondral junctions, bilateral suboccipital muscle insertions SKIN No rashes Vital Signs: Last Vital Signs Pulse 77 10/30/25 15:06 BP 132/80 12/31/24 15:06 Pulse Ox 98 12/31/24 15:06 Oxygen Delivery Method Room Air 12/31/24 15:06 BMI result Body Mass Index 28.8 Results Reviewed Results Reviewed: Laboratory Tests 02/01/22 12/28/24 08:42 09:32 WBC 5.6 RBC 4.90 Hgb 15.4 Hct 45.9 Plt Count 266 ESR 8 Sodium 142 Potassium 3.5 Chloride 107 Carbon Dioxide 28 BUN 12 Creatinine 0.98 AST 25 40 H ALT 39 H 67 H C-Reactive Protein 0.19 Laboratory Tests 02/01/22 08:42 Rheumatoid Factor < 13.0 Cycl Citrul Peptide IgG <16 SS-A/Ro Antibody <1.0 NEG SS-B/La Antibody <1.0 NEG Sm (Anderson) Antibody <1.0 NEG SM/TACTICAL/MOBILE WATCH OFFICER IgG Antibody <1.0 NEG Double Strand DNA Ab 1 Complement C3 139 Complement C4 26 Assessment & Plan Assessment & Plan (1) Fibromyalgia, primary: Code(s): M79.7 - Fibromyalgia Category: Medical Plan: #Fibromyalgia Patient is a 54-year-old female here today for follow up. Transaminitis noted on blood work. Told patient to stop her Tylenol. We will discontinue meloxicam and start Celebrex for better coverage throughout the day. No known sulfa allergies. We will add low-dose naltrexone to her regimen to see if she gets any additional benefit Plan - Gabapentin 300mg nightly - Stop meloxicam - Start celebrex 200mg bid - Start LDN 4.5mg nightly - Labs in 4 weeks: CMP - Stop Tylenol - RTC 6 months - Labs before visit: CBC, CMP, ESR, CRP Plan I spent 25 minutes reviewing the record and labs, taking a history, examining the patient, discussing the treatment plan, ordering diagnostic work up and documenting in the medical record Orders: Orders Comprehensive Met. Panel Today R74.01 - Elevation of levels of liver transaminase levels Medications: New naltrexone 4.5 mg PO .nightly 90 caps 1RF M79.7 - Fibromyalgia naltrexone 4.5 mg PO .nightly 90 caps 1RF M79.7 - Fibromyalgia celecoxib (Celebrex) 200 mg PO BID 180 caps 1RF M79.7 - Fibromyalgia Refilled gabapentin 300 mg PO BEDTIME 90 caps 1RF M79.7 - Fibromyalgia Discontinued meloxicam Discontinued Reason: Doctor's Order 15 mg PO DAILY 90 tabs 1RF M79.7 - Fibromyalgia Coding Level of Care Code Est Pt Level 4 (55042) Diagnoses Fibromyalgia, primary M79.7
[2024-12-31 15:06] VITALS: BP 132/80; PULSE 77; O2SAT 98; BMI 28.8
--- OUTSIDE RECORDS SUMMARY | 2024-12-31 17:51 | XMS_ITS | Clinical Summary ---
Author Organization [address] [facility] Address [address] [place] [address] Phone Care Team Providers Care Ancillary Specialist Name Role Phone Jean Finney MD Primary Care Provider [phone] Allergies No known active allergies Medications albuterol [...] Description 11/26/2024 4:30 PM EDT Office Visit [facility] [address] [place] [address] Mary Lopez PA Chronic migraine without aura without status migrainosus, not intractable (Primary Dx) 10/06/2024 5:13 PM EDT - 10/06/2024 11:59 PM EDT Hospital Encounter [facility] MRI [address] [place] [address] Chronic migraine without aura without status migrainosus, not intractable Discharge Disposition: Home or Self Care from Last 3 Months Surgical History Surgery Date Site/Laterality Comments SECTION PROCEDURE: HISTORICAL DELIVERY; COMMENT: x1 OTHER SURGICAL HISTORY PROCEDURE: ---- OTHER ----; COMMENT: surgery for kidney stones? cystoscopy OTHER SURGICAL HISTORY 05/17 Bilateral PROCEDURE: UT UNLISTED PROCEDURE ORBIT; COMMENT: for orbitopathy by Carlos ESOPHAGOGASTRODUODENOSCOPY PROCEDURE: UT EGD TRANSORAL BIOPSY SINGLE/MULTIPLE; COMMENT: Performed on [...] Description 03/11/2025 4:30 PM EST Office Visit [facility] [place] [address] [place] [id number] Mary Lopez PA [address] [place] [address] 04/26/2025 8:30 AM EST Office Visit Internal [facility] - [place] [address] [place] [phone] Jean Finney MD [address] [place] [address] Health Maintenance Due Date Last Done Comments [...] Signed Date: 10/06/2024 18:20 ET Workstation ID: [id number] Transcribed By: Self Edit Transcribed Date: 10/06/2024 [...] Signed Date: 10/06/2024 18:20 ET Workstation ID: [id number] Transcribed By: Self Edit Transcribed Date: 10/06/2024 18:11 ET Mary [facility] MRI PROCEDURES Final Res ult * (ABNORMAL) Lipid panel with reflex to direct LDL (04/16/2024 8:00 AM EST) Cholesterol 231(H) 0 - 200 mg/dL LAB CHEMISTRY METHOD 04/16/2024 10:23 AM EST [facility] Triglycerides 195(H) 0 - 150 mg/dL LAB CHEMISTRY METHOD 04/16/2024 10:23 AM EST [facility] HDL 45 >=40 mg/dL LAB CHEMISTRY METHOD 04/16/2024 10:23 AM EST [facility] LDL Calculated 147(H) 0 - 100 mg/dL LAB CHEMISTRY METHOD 04/16/2024 10:23 AM [facility] VLDL Cholesterol Brody 39 mg/dL LAB CHEMISTRY METHOD 04/16/2024 10:23 AM [facility] Non HDL Chol. (LDL+VLDL) 186(H) <145 mg/dL LAB CHEMISTRY METHOD 04/16/2024 10:23 AM [facility] Chol/HDL Ratio 5.1(H) 0.0 - 4.4 LAB CHEMISTRY METHOD 04/16/2024 10:23 AM [facility] Blood Venous blood specimen / Unknown Venipuncture / Unknown 04/16/2024 8:00 AM EST 04/16/2024 8:00 AM EST Jean Finney MD LAB BLOOD ORDERABLES Final Resul t [facility] [address] [place] [address], * Comprehensive metabolic panel (04/16/2024 8:00 AM EST) Sodium 140 133 - 145 mmol/L LAB CHEMISTRY METHOD 04/16/2024 10:23 AM [facility] Potassium 4.2 3.5 - 5.5 mmol/L LAB CHEMISTRY METHOD 04/16/2024 10:23 AM [facility] Chloride 105 96 - 110 mmol/L LAB CHEMISTRY METHOD 04/16/2024 10:23 AM [facility] CO2 30 21 - 32 mmol/L LAB CHEMISTRY METHOD 04/16/2024 10:23 AM [facility] Anion Gap 5 3 - 11 LAB CHEMISTRY METHOD 04/16/2024 10:23 AM [facility] Glucose 82 70 - 100 mg/dL LAB CHEMISTRY METHOD 04/16/2024 10:23 AM [facility] BUN 11 5 - 25 mg/dL LAB CHEMISTRY METHOD 04/16/2024 10:23 AM [facility] Creatinine 0.93 0.50 - 1.10 mg/dL LAB CHEMISTRY METHOD 04/16/2024 10:23 AM [facility] eGFR 73 >=60 mL/min/1. 73m2 LAB CHEMISTRY METHOD 04/16/2024 10:23 AM [facility] Comment:Calculation based on the Chronic Kidney Disease Epidemiology Collaboration (CKD-EPI) equation refit without adjustment for race. BUN/Creatinine Ratio 11.8 LAB CHEMISTRY METHOD 04/16/2024 10:23 AM [facility] Calcium 9.9 8.5 - 10.5 mg/dL LAB CHEMISTRY METHOD 04/16/2024 10:23 AM [facility] AST (SGOT) 21 10 - 42 unit/L LAB CHEMISTRY METHOD 04/16/2024 10:23 AM [facility] ALT (SGPT) 38 10 - 60 unit/L LAB CHEMISTRY METHOD 04/16/2024 10:23 AM [facility] Alkaline Phosphatase 108 42 - 121 unit/L LAB CHEMISTRY METHOD 04/16/2024 10:23 AM [facility] Total Protein 7.1 6.0 - 8.0 g/dL LAB CHEMISTRY METHOD 04/16/2024 10:23 AM [facility] Albumin 4.0 3.2 - 5.0 g/dL LAB CHEMISTRY METHOD 04/16/2024 10:23 AM [facility] Total Bilirubin 0.6 0.0 - 1.4 mg/dL LAB CHEMISTRY METHOD 04/16/2024 10:23 AM [facility] Blood Venous blood specimen / Unknown Venipuncture / Unknown 04/16/2024 8:00 AM EST 04/16/2024 8:00 AM EST us Jean Finney MD LAB BLOOD ORDERABLES Final Resul t [facility] [address] [place] [address], * SCREENING MAMMOGRAPHY BI 2-VIEW BREAST INC [...] Nomammographic evidence of malignancy. BIRADS 1-Negative; N. Mary Cox DO IMG XR PROCEDURES Final Result * Pap smear (04/10/2023) 04/10/2023 Narrative HISTORICAL TESTING LAB RESULTING AGENCY - 04/19/2023 3:50 PM EST [id number] THINPREP PAP, IMAGED: NEGATIVE FOR SQUAMOUS INTRAEPITHELIAL LESION AND MALIGNANCY . DINA JOSÉ , PRECIOUS(ASCP) (CASE ELECTRONICALLY SIGNED 04 19 2023) RESULT OF APTIMA HIGH RISK HPV ASSAY: HIGH RISK HPV: NEGATIVE (SEROTYPES 16,18,31,33,35,39,45,51,52,56,58,59,66,68) COMPLETED ON 2023-04-12 ADEQUACY: SATISFACTORY ENDOCERVICAL/TRANSFORMATION ZONE COMPONENT PRESENT. SOURCE: THINPREP PAP HPV ANY DX: REFLEX 16 AND 18, CERVICAL, IMAGED CLINICAL INFORMATION: HPV ANY DIAGNOSIS. HORMONES, PAP HX NEGATIVE, [[id number]] us [place] [facility] LAB CYTOLOGY ORDERABLES Final Result HISTORICAL TESTING [...] IMPRESSION: IMPRESSION: Osteoporosis by WHO criteria. The [facility] Department of Internal Medicine recommends using National [...] screening schedule based on escobar Call al., [facility] March 22, 2011 for patients [...] IMPRESSION: IMPRESSION: Osteoporosis by WHO criteria. The [facility] Department of Internal Medicine recommendsusing National Osteoporosis [...] FRAX. Optional alternative screening schedule based on long Call., [place] 2011 for patients with osteopenia (based on hip BMD T-score) is as follows: * advanced osteopenia (T scores -2.00 to -2.49), BMD testing every year * moderate osteopenia (T scores -1.50 to -1.99), BMD testing every 5years mild osteopenia or normal BMD (T scores -1.50 and higher), BMD testingevery 15 years [place] [facility] IMG DXA PROCEDURES Final Resu lt from Last 3 Months or Most Recently Relevant to Health Maintenance Insurance Silver Push PLAN Care Teams Ancillary Specialist Relationship Specialty Start Date End Date Jean Finney MD [address] [place] [phone] PCP - General Internal Medicine 02/21/24
--- OUTSIDE RECORDS SUMMARY | 2024-12-31 17:51 | XMS_ITS ---
Author Name [facility] Organization Unknown History of Medication Use Medication Directions Dispensed Refills Start Date End Date Stat FLUoxetine (PROzac) 40 MG capsule Take 1 capsule (40 mg total) by mouth. 09/18/2023 active amitriptyline (ELAVIL) tablet 25 mg Take 1 tablet (25 mg total) by mouth every night at bedtime for 7 days, THEN 2 tablets (50 mg total) every night at bedtime for 40 days. 09/18/2023 active Kczjnadeqj-OJHX-Dvfexvxa 50-325-40 MG per capsule Take 1 tablet by mouth. 09/18/2023 active hydroCHLOROthiazide (HYDRODIURIL) tablet 25 mg Take 1 tablet (25 mg total) by mouth daily. 09/18/2023 active levothyroxine (SYNTHROID) tablet 112 mcg Take 1 tablet (112 mcg total) by mouth. 09/18/2023 active losartan (COZAAR) tablet 25 mg Take 1 tablet (25 mg total) by mouth daily. 09/18/2023 active SUMAtriptan (IMITREX) 50 MG tablet Take 1 tablet (50 mg total) by mouth every 2 (two) hours as needed. 09/18/2023 active alendronate (FOSAMAX) tablet 70 mg Take 1 tablet (70 mg total) by mouth every 7 days. 07/01/2023 5 active fluticasone (FLONASE) 50 MCG/ACT nasal spray INSTILL 1 spray in each nostril 1 OR 2 times daily 07/01/2023 active ibuprofen 800 MG tablet Take 1 tablet (800 mg total) by mouth every 8 (eight) hours as needed. 06/19/2023 active loratadine (CLARITIN) 10 MG tablet Take 1 tablet (10 mg total) by mouth daily. 06/19/2023 active spironolactone (ALDACTONE) tablet 50 mg Take 1 tablet (50 mg total) by mouth. 06/19/2023 active Acetaminophen Extra Strength 500 MG TABS 06/15/2023 acti ve minoxidil (LONITEN) 2.5 MG tablet Take 0.5 tablets (1.25 mg total) by mouth daily. 02/05/2023 active montelukast (SINGULAIR) 10 MG tablet 08/28/2022 active Calcium Carb-Cholecalciferol (Oyster Shell Calcium/D) 500-10 MG-MCG TABS Take 1 tablet by mouth daily. 06/19/2022 active Fluticasone Furoate-Vilanterol (Breo Ellipta) 200-25 MCG/ACT AEPB 05/11/2022 active albuterol (Ventolin HFA) 108 (90 Base) MCG/ACT inhaler 02/01/2022 active Problems Problem Status Onset Date Problem Type Date of Resolution Source Multiple sclerosis (HCC) active EncounterDiagnosisAct CTTHNE MG Migraine without aura and without status migrainosus, not intractable active EncounterDiagnosisAct CTT HNEMG White matter lesion of central nervous system active EncounterDiagnosisAct CTTHNE MG
--- OUTSIDE RECORDS SUMMARY | 2024-12-31 17:51 | XMS_ITS | Clinical Summary ---
Author Organization [facility] Address [address] [place] [address] Care Team Providers Care Passenger Solicitor Name Role Phone Ruchi Johnson MD Primary Care Provider [phone] Allergies No known active allergies Medications Medication [...] 3 11/18/2023 Active ergocalciferol (VITAMIN D2) capsule 65916 units Take 1 capsule (50,000 Units total) [...] age to complete this topic Care Teams Passenger Solicitor Relationship Specialty Start Date End Date Ruchi Johnson MD [address] [place] [id number] PCP - General Internal Medicine 09/24/23
== END 2024-12-31 15:55 | disposition home or self-care (01) ==
LOC: HO.RHES 14:58
PROVIDERS: PCP Student in an Organized Health Care Education/Training Program; Visit Provider Student in an Organized Health Care Education/Training Program
DX: M79.7 Fibromyalgia (principal)
CPT/HCPCS: 99214

== ENCOUNTER → 2024-12-31 14:58 | Outpatient (BNVA) | payer OTHER, SELFPAY | PROVIDERS: PCP Student in an Organized Health Care Education/Training Program; Visit Provider Student in an Organized Health Care Education/Training Program | DX: M79.7 Fibromyalgia (principal); R76.0 Raised antibody titer | CPT/HCPCS: 99212 ==